=== PATIENT | female | born 1985 | race Caucasian/White ===

== ENCOUNTER → 2017-06-03 13:20 | Outpatient (CLI) | payer MEDICAID, SELFPAY ==
[2017-06-03 14:28] LABS: Basophils % 0.3 % (0.1-2.0); Eosinophils # 0.1 K/mm3 (0.0-0.4); Eosinophils % 1.4 % (0.1-12.0); Hematocrit 40.3 % (37.0-47.0); Hemoglobin 13.5 g/dL (12.2-16.2); Mean Corpuscular HGB Conc 33.6 g/dL (31.8-35.4); Mean Corpuscular Hemoglobin 32.8 pg (27.0-31.2); Mean Corpuscular Volume 97.6 fl (81-99); Mean Platelet Volume 7.6 fl (7.4-10.4); Monocytes # 0.3 K/mm3 (0.1-1.0); Monocytes % 4.5 % (1.7-9.3); Neutrophils # 5.1 K/mm3 (1.8-7.8); Neutrophils % 67.7 % (37.0-80.0); Platelet Count 248 K/mm3 (142-424); Red Blood Count 4.12 M/mm3 (4.20-5.40); Red Cell Distribution Width 12.8 % (11.5-17.5); White Blood Count 7.5 K/mm3 (4.8-10.8)
[2017-06-03 15:57] LABS: Alanine Aminotransferase 59 U/L (12-78); Albumin Level 4.4 gm/dL (3.4-5.0); Albumin/Globulin Ratio 1.3 (1.1-1.8); Alkaline Phosphatase 121 U/L (46-116); Anion Gap 13.7 mEq/L (5-15); Aspartate Amino Transferase 48 U/L (15-37); Bilirubin,Total 0.7 mg/dL (0.2-1.0); Blood Urea Nitrogen 13 mg/dL (7-18); Calcium 8.8 mg/dL (8.5-10.1); Carbon Dioxide 28 mmol/L (21.0-32.0); Chloride 103 mmol/L (98-107); Creatinine,Serum 0.57 mg/dL (0.55-1.02); Estimated Glomerular Filt Rate 125 ml/min (>60); Ferritin 120 ng/mL (8-388); GFR (African American) 152 ML/MIN (>60); Globulin 3.3 gm/dl (1.3-3.2); Glucose 99 mg/dL (74-106); Potassium 3.7 mmoL/L (3.5-5.1); Sodium 141 mmol/L (136-145); Total Protein,Serum 7.7 gm/dL (6.4-8.2)
[2017-06-03 18:56] LABS: Amphetamine/Metha Screen,Urine Negative ng/mL (<1000); Barbiturates Screen,Urine Negative ng/mL (<200); Benzodiazepines Screen,Urine Negative ng/mL (200); Cannabinoid Screen,Urine Negative ng/mL (<50); Cocaine Screen,Urine Negative ng/g (<300); Methadone Screen,Urine Negative ng/mL (<300); Opiate Screen,Urine Negative ng/mL (<300); Phencyclidine Screen,Urine Negative ng/mL (<25)
[2017-06-05 12:29] LABS: Actin (Smooth Muscle) Antibody 9 Units (0-19)
[2017-06-06 07:20] LABS: Hep A Ab, Total Negative (Negative); Hep B Core Ab, Total Negative (Negative); Hepatitis B Surface Antigen Negative (Negative)
[2017-06-07 22:09] LABS: Hepatitis C Genotype 1a (.)
[2017-06-09 18:15] LABS: Hep B Surface Ab, Qual Non Reactive (.)
[2017-06-09 18:17] LABS: Antinuclear Antibodies, IFA Positive (.)
== END ==
PROVIDERS: PCP Nurse Practitioner Family; Visit Provider Physician Assistant
DX: B19.20 Unspecified viral hepatitis C without hepatic coma (principal); Z87.898 Personal history of other specified conditions; Z78.9 Other specified health status
CPT/HCPCS: 80053; 80305; 82728; 85025; 86038; 86255; 86704; 86706; 86708; 87340

== ENCOUNTER → 2017-07-03 15:56 | Outpatient (CLI) | payer MEDICAID, SELFPAY ==
--- NOTE | 2017-07-03 | XR_ITS ---
XR foot RT min 3V, XR foot LT min 3V, XR ankle RT min 3V, XR ankle LT min 3V Ordering Physician: Isadora Looney DPM Patient Age: 31 years: Female HISTORY: Foot and ankle pain bilatera.. L physical deformity of feet TECHNIQUE: Right ankle: 3 views weightbearing Left ankle: 3 views weightbearing Right foot: 3 views weightbearing Left foot: 3 views weightbearing COMPARISON :February 2015 right and left foot studies available RIGHT ANKLE: 3 views weightbearing RIGHT FOOT: 3 views weightbearing The above images are reviewed together Right foot: Notable flexion, hammertoe deformity at all the toes again noted. With perhaps borderline/trace hallux valgus. On the second and third metatarsals seem to be closer to one another than the other metatarsals but this appears stable feature and normal variant. The joint spaces at the mid foot and tarsal appear intact... Modest but Adequate plantar arch Right ankle joint appears intact. Dome of talus intact. Normal relationships ankle mortise. The medial, lateral, and posterior malleolus satisfactory. IMPRESSION.:======== Right ankle intact. On flexion, hammertoe deformity at toes LEFT ANKLE: 3 views weightbearing left ankle appears intact. Normal relationships. Dome of talus ankle. Mortise appear intact. LEFT FOOT: 3 views weightbearing . Normal alignment with no fracture nor dislocation.. Modest but Adequate plantar arch No significant change since 2014. The metatarsals intact. Mild flexion deformity of most evident at the toes 3, 4 and 5 and to lesser degree second and first toe. . A small plantar calcaneal spur 2 mm. IMPRESSION: ========= Left ankle and foot intact. Mild flexion deformity at toes :
== END ==
PROVIDERS: PCP Nurse Practitioner Family; Visit Provider Podiatrist
DX: M79.671 Pain in right foot (principal); M79.672 Pain in left foot
CPT/HCPCS: 73610; 73630

== ENCOUNTER → 2017-08-14 13:19 | Outpatient (POV) | payer MEDICAID, SELFPAY | PROVIDERS: PCP Nurse Practitioner Family; Visit Provider Specialist | DX: Q66.7 Congenital pes cavus (principal) | CPT/HCPCS: 95886; 95908 ==

== ENCOUNTER 2017-09-18 13:30 | Outpatient (RCR) | payer MEDICAID, SELFPAY | END 2017-09-18 17:00 | disposition home or self-care (01) | LOC: PT 13:30 | PROVIDERS: PCP Nurse Practitioner Family; Visit Provider Podiatrist | DX: M62.81 Muscle weakness (generalized) (principal) | CPT/HCPCS: 97110; 97163 ==

== ENCOUNTER → 2018-03-06 11:36 | Outpatient (CLI) | payer MEDICAID, SELFPAY ==
[2018-03-06 13:35] LABS: Basophils % 0.3 % (0.1-2.0); Eosinophils # 0.3 K/mm3 (0.0-0.4); Eosinophils % 4.1 % (0.1-12.0); Hematocrit 37.2 % (37.0-47.0); Hemoglobin 12.4 g/dL (12.2-16.2); Lymphocytes # 2.2 K/mm3 (0.7-4.5); Lymphocytes % 34.5 K/mm3 (10-50); Mean Corpuscular HGB Conc 33.4 g/dL (31.8-35.4); Mean Corpuscular Hemoglobin 33.4 pg (27.0-31.2); Mean Corpuscular Volume 99.9 fl (81-99); Mean Platelet Volume 8.2 fl (7.4-10.4); Monocytes # 0.3 K/mm3 (0.1-1.0); Monocytes % 4.8 % (1.7-9.3); Neutrophils # 3.5 K/mm3 (1.8-7.8); Neutrophils % 56.4 % (37.0-80.0); Platelet Count 245 K/mm3 (142-424); Red Blood Count 3.72 M/mm3 (4.20-5.40); Red Cell Distribution Width 13.2 % (11.5-17.5); White Blood Count 6.3 K/mm3 (4.8-10.8)
[2018-03-06 14:16] LABS: Alanine Aminotransferase 88 U/L (12-78); Albumin Level 3.7 gm/dL (3.4-5.0); Alkaline Phosphatase 110 U/L (46-116); Anion Gap 14.2 mEq/L (5-15); Aspartate Amino Transferase 54 U/L (15-37); Bilirubin,Direct 0.1 mg/dL (0.0-0.2); Bilirubin,Indirect 0.2 mg/dL (0.0-0.9); Bilirubin,Total 0.3 mg/dL (0.2-1.0); Blood Urea Nitrogen 15 mg/dL (7-18); Calcium 8.8 mg/dL (8.5-10.1); Carbon Dioxide 27 mmol/L (21.0-32.0); Chloride 103 mmol/L (98-107); Creatinine,Serum 0.69 mg/dL (0.55-1.02); Estimated Glomerular Filt Rate 100 ml/min (>60); GFR (African American) 121 ML/MIN (>60); Glucose 84 mg/dL (74-106); Potassium 4.2 mmoL/L (3.5-5.1); Sodium 140 mmol/L (136-145); Total Protein,Serum 6.8 gm/dL (6.4-8.2)
[2018-03-07 09:19] LABS: Hep A Ab, IgM Negative (Negative); Hepatitis B Core Antibody IgM Negative (Negative); Hepatitis B Surface Antigen Negative (Negative)
[2018-03-07 15:57] LABS: HIV Screen 4th Generation wRfx Non Reactive (Non Reactive); Hepatitis C Antibody >11.0 s/co ratio (0.0-0.9)
== END ==
PROVIDERS: PCP Nurse Practitioner Family; Visit Provider Anesthesiology
DX: F11.20 Opioid dependence, uncomplicated (principal); R94.5 Abnormal results of liver function studies
CPT/HCPCS: 36415; 80048; 80074; 80076; 85025; 86703; G0432

== ENCOUNTER → 2021-02-04 09:50 | Outpatient (CLI) | payer MEDICAID, SELFPAY ==
--- NOTE | 2021-02-04 09:57 | CT_ITS ---
PROCEDURE: CT ABDOMEN W CON CLINICAL HISTORY: LT UPPER ABD SWELLING/MASS COMPARISON: No exams were available for comparison TECHNIQUE: 75 mL Isovue 370 Axial images obtained with sagittal and coronal reformats. All CT scans at the facility use one or more dose reduction, viz: automated exposure control, ma/kV adjustment per patient size (including targeted exams where dose is matched to indication, i.e. head), or iterative reconstruction technique. FINDINGS: Lung bases are clear. No focal liver lesion identified. Spleen, adrenal glands, pancreas, and kidneys have an unremarkable appearance. There is mild distention of the gallbladder. No radiopaque gallstones apparent. No intestinal obstruction or free air is evident. There is a ventral abdominal wall hernia containing fat 2 cm cephalad to the umbilicus. The hernia orifice measures 1.8 cm. The hernia sac measures 5.8 cm in width and is canted toward the left. There is a tiny umbilical hernia containing fat. There is some mild haziness of the peritoneal fat deep to the supraumbilical hernia. This hernia does not contain bowel. No acute bony findings. IMPRESSION: Small to medium-sized supraumbilical hernia containing fat. There is mild haziness of the peritoneal fat deep to the hernia orifice. Tiny fat containing umbilical hernia also noted. Dictated by: Andrey Lam MD 02/05/2021 07:38 Andrey Lam MD in [place] 02/05/2021 07:38
== END ==
PROVIDERS: PCP Nurse Practitioner Family; Visit Provider Nurse Practitioner Family
DX: R19.02 Left upper quadrant abdominal swelling, mass and lump (principal)
CPT/HCPCS: 74160; Q9967

== ENCOUNTER → 2021-03-03 10:48 | Outpatient (CLI) | payer MEDICAID, SELFPAY ==
[2021-03-03 11:41] LABS: Basophils % 0.5 % (0.1-2.0); Eosinophils # 0.2 K/mm3 (0.0-0.4); Eosinophils % 3.9 % (0.1-12.0); Hematocrit 42.2 % (37.0-47.0); Hemoglobin 13.9 g/dL (12.2-16.2); Lymphocytes # 1.9 K/mm3 (0.7-4.5); Lymphocytes % 37.4 % (10-50); Mean Corpuscular Hemoglobin 33.7 pg (27.0-31.2); Mean Platelet Volume 8.2 fl (7.4-10.4); Monocytes # 0.3 K/mm3 (0.1-1.0); Monocytes % 5.6 % (1.7-9.3); Neutrophils # 2.7 K/mm3 (1.8-7.8); Neutrophils % 52.5 % (37.0-80.0); Platelet Count 275 K/mm3 (142-424); Red Blood Count 4.14 M/mm3 (4.20-5.40); Red Cell Distribution Width 12.6 % (11.5-17.5); White Blood Count 5.1 K/mm3 (4.8-10.8)
[2021-03-03 11:58] LABS: Urine Pregnancy, HCG Qual. Negative (Negative)
[2021-03-03 12:45] LABS: Chloride 104 mmol/L (98-107); Potassium 4.1 mmoL/L (3.5-5.1); Sodium 142 mmol/L (136-145)
[2021-03-03 12:48] LABS: Anion Gap 15.1 mEq/L (5-15); Blood Urea Nitrogen 13 mg/dl (7-17); Calcium 9.7 mg/dl (8.4-10.2); Carbon Dioxide 27 mmol/L (22.0-30.0); Estimated Glomerular Filt Rate 184 ml/min (>60); GFR (African American) 222 ML/MIN (>60); Glucose 73 mg/dl (74-100)
== END ==
PROVIDERS: Visit Provider Surgery
DX: Z01.812 Encounter for preprocedural laboratory examination (principal); Z11.52 Encounter for screening for COVID-19; K43.9 Ventral hernia without obstruction or gangrene
CPT/HCPCS: 36415; 80048; 81025; 85025; C9803; U0003; U0005

== ENCOUNTER 2021-03-05 06:11 | Day surgery (SDC) | payer MEDICAID, SELFPAY ==
[2021-03-04 13:15] VITALS: BMI 27.4
[2021-03-05] VITALS (12 sets, daily range): BP systolic 106–142; BP diastolic 58–88; PULSE 68–80; RESP 16–23; TEMP 36.6–43; O2SAT 94–98
--- NOTE | 2021-03-05 07:19 | HMH.ANESCL ---
[facility] Anesthesia Checklist - Patient Identification Patient Identification: Arm Band - Structural Data Admitted From: Home Planned Operative Procedure/s: Lap. ventral hernia repair Consent for Planned Operative Procedure(s) Verified: Yes - NPO Status Verified Time NPO: 00:00 - Additional verifications Anesthesia Reactions: No Hx Blood Transfusions: No Blood Transfusion Reaction: No - Airway Assessment C-Spine Mobility Assessed: Yes TMJ Mobility Assessed: Yes Dentition: Good Dentition - Neurological Assessment Level of Consciousness: Awake Hx Seizures: No Numbness or tingling in extremities: No - Anesthesia Plan Anesthesia Risk discussed: Yes Anesthesia Plan: Verified ASA Class: II Anesthesia Type: General [facility] History I have reviewed the patient's past medical history: Yes Medical History: Reports:: Anxiety Denies:: Asthma, Cancer, Chronic Obstructive Pulmonary Disease (COPD), Diabetes Mellitus Type 1, Diabetes Mellitus Type 2, MRSA, Seizures *Have you ever received a pneumonia vaccine?: No *Have you received a flu vaccine this season?: No Other Medical History: Denies: Blood Transfusion Reaction Anesthesia experience/problems:: None Laterality Cases: Right: Total Knee Replacement, Bilateral: Tonsillectomy Other Surgeries: Yes: Amputation: No Fractures: Yes - *Social History Last grade of school completed: 9th or 10th Smoking Status: Former smoker Tobacco Type: cigarettes, smokeless tobacco # Packs/Day (cigarettes): 1 Alcohol Intake: never Alcohol Intake Frequency:: other Substance Use Type: opiates Last Used Substance: days (ago) *Occupational Status:: unemployed Housing: house Household Members: significant other, children *Travel in the last 8 weeks: None - Psychiatric History Pschychiatric History:: Reports:: Anxiety Family Hx:: No significant family history
--- NOTE | 2021-03-05 09:10 | P.OP_ITS ---
Date of procedure: 03/05/21 Pre-op Diagnosis:: Ventral hernia (supraumbilical) Post-op Diagnosis:: Same Procedure performed:: Laparoscopic-assisted open repair of supraumbilical hernia (8 cm Ventralex mesh) Surgeon:: Tyler Croft MD Marketing Services Rep(s):: Tiago [employer] CHIEF CREATIVE OFFICER:: Gregorio Jesus Anesthesia: GETA Estimated blood loss (mL): 10 Operative findings:: 2 cm defect approximately 2 cm above the umbilicus Tiny umbilical defect 8 cm Ventralex mesh to repair hernia and also cover tiny umbilical defect Operative note:: After informed consent was obtained the patient was taken to the operating room and placed in the supine position. General anesthesia was induced and her abdomen was prepped and draped in a sterile fashion. After infiltration local anesthetic a small stab incision was made in the left upper quadrant. The Veress needle was placed in position. The abdomen was insufflated. A 5 mm optical trocar was placed on the left mid flank. Under direct visualization an additional 5 mm trocar was placed at the Veress needle insertion site after extending the incision. An additional 5 mm trocar was placed in the left lower quadrant. A tiny umbilical defect with incarcerated preperitoneal fat was confirmed. The preperitoneal fat was removed with blunt dissection. The larger supraumbilical defect had incarcerated preperitoneal fat to encompass the distal portion of the falciform ligament. After infiltration local anesthetic an incision was made above the umbilicus. Blunt dissection and electrocautery were utilized to transect through the deeper subcutaneous tissue. The incarcerated preperitoneal fat/distal falciform ligament was carefully elevated and transected with electrocautery. An 8 cm Ventralex mesh was then placed in position and secured with 0 Ethibond. Primary closure with 0 Ethibond was then completed overlying the mesh repair. Optifix tacks were then utilized to secure the margin of the mesh internally. Pneumoperitoneum was released as all trocars were removed. Wounds were irrigated and skin was closed with 4-0 Monocryl. Dressings were applied and the patient was transferred to recovery in stable condition after extubation. Condition: stable Disposition: PACU Specimens:: None Complications:: No immediate
--- NOTE | 2021-03-05 09:29 | HMH.ANESI ---
[facility] Anesthesia Record Part I Intake, IV Amount: 800 Estimated blood loss (mL): 10 Urine output (mL): 50 Blood Pressure: 142/58 SaO2: 94 Pulse Rate: 68 Respiratory Rate: 23 Temperature: 99.6 F Patient is:: Drowsy, Oral/Nasal airway Stable to PACU at:: 09:29
--- NOTE | 2021-03-05 10:23 | PC.NURSE ---
957-detailed bedside report given to CAITIE Bee 955-pt transported to post op via stretcher w/batool rails up, left in care of CAITIE Bee, vss, pt stable
--- NOTE | 2021-03-05 12:11 | HMH.ANESII ---
[facility] Anesthesia Record Part II Discharge Time: 10:09 Destination: [facility] PACU nurse assessment reviewed?: Yes Patient Condition:: Good Anesthesia Complications:: None Swallowing reflex intact?: Yes Cyanosis?: No Blood Pressure: 112/62 Pulse Rate: 78 Temperature: 98 F Mental Status: Alert & Oriented Pain level:: 5 Nausea and/or vomitting:: None Intake, IV Amount: 1,000
== END 2021-03-05 10:40 | disposition home or self-care (01) ==
LOC: OR 06:14
PROVIDERS: PCP Nurse Practitioner Family; Visit Provider Surgery
PROC: 0WQF4ZZ Repair Abdominal Wall, Percutaneous Endoscopic Approach (ICD-10-PCS; CPT 49561; principal; 2021-03-05 07:30)
DX: K43.6 Other and unspecified ventral hernia with obstruction, without gangrene (principal); F41.9 Anxiety disorder, unspecified; Z87.891 Personal history of nicotine dependence; Z88.0 Allergy status to penicillin; Z79.899 Other long term (current) drug therapy
CPT/HCPCS: 49561; 49568; 87086; 96374; C1781; J2405

== ENCOUNTER 2024-04-16 14:45 | Outpatient (CLI) | payer MEDICAID, SELFPAY ==
[2024-04-16 15:38] LABS: Basophils # 0.2 K/mm3 (0-0.2); Basophils % 3.3 % (0.1-2.0); Eosinophils # 0.2 K/mm3 (0.0-0.4); Hematocrit 35.5 % (37.0-47.0); Hemoglobin 12.1 g/dL (12.2-16.2); Lymphocytes # 1.4 K/mm3 (0.7-4.5); Lymphocytes % 31.5 % (10-50); Monocytes # 0.4 K/mm3 (0.1-1.0); Monocytes % 8.6 % (1.7-9.3); Neutrophils # 2.4 K/mm3 (1.8-7.8); Neutrophils % 52.6 % (37.0-80.0); Platelet Count 129 K/mm3 (142-424); Red Blood Count 3.55 M/mm3 (4.20-5.40); Red Cell Distribution Width 14.7 % (11.5-17.5); White Blood Count 4.5 K/mm3 (4.8-10.8)
[2024-04-16 16:16] LABS: Chloride 108 mmol/L (98-107); Sodium 137 mmol/L (136-145)
[2024-04-16 16:19] LABS: Alanine Aminotransferase 74 U/L (12-78); Albumin/Globulin Ratio 1.1 (1.1-1.8); Aspartate Amino Transferase 165 U/L (14-36); Blood Urea Nitrogen 10 mg/dl (7-17); Carbon Dioxide 24 mmol/L (22.0-30.0); Estimated Glomerular Filt Rate 140 ml/min (>60); GFR (African American) 169 ML/MIN (>60); Globulin 3.8 g/dL (1.3-3.2); Total Protein,Serum 7.8 g/dl (6.3-8.2)
[2024-04-16 16:20] LABS: Alkaline Phosphatase 131 U/L (38-126); Bilirubin,Total 1.9 mg/dl (0.2-1.3); Calcium 9.3 mg/dl (8.4-10.2); Chol/HDL Ratio 5.3 (1-3.5); Cholesterol 175 mg/dl (140-200); Glucose 88 mg/dl (74-100); HDL Cholesterol 33 mg/dl (40-60); Triglycerides 95 mg/dl (30-150); VLDL Cholesterol 19 mg/dL (0-40)
[2024-04-16 16:31] LABS: Direct LDL Cholesterol 111.35 mg/dL (100-129)
[2024-04-16 16:35] LABS: HIV (1&2) Antibody Rapid NONREACTIVE (NONREACTIVE)
[2024-04-16 16:51] LABS: Thyroid Stimulating Hormone 1.28 uIU/mL (0.465-4.68)
[2024-04-16 17:08] LABS: 25-OH Vitamin D, Total 51.6 ng/mL (30-100)
[2024-04-17 07:16] LABS: Hep A Ab, Total Negative (Negative); Hep B Core Ab, Total Negative (Negative); Hep B Surface Ab, Qual Non Reactive (.); Hepatitis B Surface Antigen Negative (Negative)
[2024-04-18 20:13] LABS: HCV Ab Reactive (Non Reactive)
[2024-04-19 03:38] LABS: ALT (SGPT) P5P 72 IU/L (0-40); Alpha 2-Macroglobulins, Qn 258 mg/dL (110-276); Apolipoprotein A-1 78 mg/dL (116-209); Bilirubin, Total 1.6 mg/dL (0.0-1.2); Fibrosis Score 0.79 (0.00-0.21); GGT 107 IU/L (0-60); Haptoglobin 57 mg/dL (33-278); Necroinflammat Activity Grade A2-A3 (.); Necroinflammat Activity Score 0.61 (0.00-0.17)
== END 2024-04-16 23:59 | disposition home or self-care (01) ==
LOC: LAB 14:46
PROVIDERS: PCP Nurse Practitioner Family; Visit Provider Nurse Practitioner Family
DX: B19.20 Unspecified viral hepatitis C without hepatic coma (principal); R74.8 Abnormal levels of other serum enzymes; Z11.59 Encounter for screening for other viral diseases
CPT/HCPCS: 36415; 80050; 80053; 80061; 81517; 82306; 84443; 85025; 86704; 86706; 86708; 86803; 87340; 87380; 87389; 87522

== ENCOUNTER 2024-05-02 09:34 | Outpatient (CLI) | payer MEDICAID, SELFPAY ==
--- NOTE | 2024-05-02 09:35 | US_ITS ---
FINAL REPORT CLINICAL HISTORY: Hep C positive, elevated liver enzymes COMPARISON: None FINDINGS: HEPATIC ULTRASOUND Multiple transverse and longitudinal scans were performed of the right upper quadrant of the abdomen. FINDINGS: Limited images of the liver demonstrate no obvious mass or evidence of cirrhosis. IMPRESSION: No obvious sonographic features of cirrhosis. HEPATIC ULTRASOUND ELASTOGRAPHY EQUIPMENT: Amaro EPIQ Elite 5, C5-1 probe FINDINGS: The median liver stiffness value is 2.43 m/s (17.75 KPa) consistent with advanced fibrosis. The IQR/med is 28%. IMPRESSION: Measurements suggestive of advanced fibrosis. Suggestive of CSPH. Note: In the setting of elevated 1iver function tests, post prandial state, and CHF the degree of liver fibrosis may be overestimated Liver Stiffness Value Recommendation (per SRU): <= 5 kPa (1.3 m/sec) High probability of being normal < 9 kPa (1.7 m/sec) In the absence of other known clinical signs, rules out cACLD. If there are known clinical signs, may need further test for confirmation 9-13 kPa (1.7-2.1 m/sec) Suggestive of cACLD but need further test for confirmation > 13 kPa (2.1 m/sec) Rules in cACLD > 17 kPa (2.4 m/sec) Suggestive of CSPH Note.-ARFI = acoustic radiation force impulse, cACLD = compensated advanced chronic liver disease, CSPH = clinically significant portal hypertension, NAFLD = non-alcoholic fatty liver disease. Reviewed, Interpreted and Dictated by Feng Phelps MD Transcribed by Yulia Matos Authenticated and [facility]
== END 2024-05-02 23:59 | disposition home or self-care (01) ==
LOC: RAD 09:35
PROVIDERS: PCP Nurse Practitioner Family; Visit Provider Nurse Practitioner Family
DX: R74.8 Abnormal levels of other serum enzymes (principal); B18.2 Chronic viral hepatitis C
CPT/HCPCS: 76981

== ENCOUNTER 2024-09-17 15:26 | Outpatient (CLI) | payer MEDICAID, SELFPAY ==
[2024-09-18 12:16] LABS: AFP, Tumor Marker 5.7 ng/mL (0.0-6.4)
== END 2024-09-17 23:59 | disposition home or self-care (01) ==
LOC: LAB 15:27
PROVIDERS: PCP Nurse Practitioner Family; Visit Provider Internal Medicine Gastroenterology
DX: K74.69 Other cirrhosis of liver (principal); B19.20 Unspecified viral hepatitis C without hepatic coma
CPT/HCPCS: 36415; 80053; 82105; 87522

== ENCOUNTER 2024-10-14 14:55 | Outpatient (CLI) | payer MEDICAID, SELFPAY ==
[2024-10-14 16:51] LABS: Alanine Aminotransferase 25 U/L (12-78); Albumin Level 3.8 g/dl (3.5-5.0); Albumin/Globulin Ratio 1.3 (1.1-1.8); Alkaline Phosphatase 95 U/L (38-126); Anion Gap 9.9 mEq/L (5-15); Aspartate Amino Transferase 43 U/L (14-36); Bilirubin,Total 1.3 mg/dl (0.2-1.3); Blood Urea Nitrogen 10 mg/dl (7-17); Calcium 9.1 mg/dl (8.4-10.2); Carbon Dioxide 25 mmol/L (22.0-30.0); Chloride 108 mmol/L (98-107); Estimated Glomerular Filt Rate 180 ml/min (>60); GFR (African American) 217 ML/MIN (>60); Globulin 2.9 g/dL (1.3-3.2); Glucose 150 mg/dl (74-100); Potassium 3.9 mmoL/L (3.5-5.1); Sodium 139 mmol/L (136-145); Total Protein,Serum 6.7 g/dl (6.3-8.2)
== END 2024-10-14 23:59 | disposition home or self-care (01) ==
LOC: LAB 14:56
PROVIDERS: PCP Nurse Practitioner; Visit Provider Internal Medicine Gastroenterology
DX: K74.69 Other cirrhosis of liver (principal); B19.20 Unspecified viral hepatitis C without hepatic coma
CPT/HCPCS: 36415; 80053

== ENCOUNTER 2025-01-05 18:12 | Emergency (ER) | payer MEDICAID, SELFPAY ==
[2025-01-05] VITALS (9 sets, daily range): BP systolic 109–146; BP diastolic 58–92; PULSE 51–74; RESP 16–18; TEMP 36.7–37; O2SAT 95–98; BMI 29.0
--- NOTE | 2025-01-05 18:23 | ECG_ITS ---
APPROVED REPORT Exam: Resting ECG HR:63 bpm ECG Measurements Heart Rate 63 AXES PA 143 P 31 QRSd 107 QRS 37 QT 400 T 24 QTc 408 Conclusion SINUS RHYTHM POSSIBLE RIGHT VENTRICULAR CONDUCTION DELAY [RSR (QR) IN V1/V2] BORDERLINE ECG UNCONFIRMED REPORT Electronically signed by : Sachin Myers, 01/05/2025 23:10:26
--- NOTE | 2025-01-05 18:58 | ED_ITS ---
<Statement entered by Albert Myers MD - 01/05/25 22:57> I was consulted by the MIGUELINA, and we discussed the complexity of the problems being addressed. I approved the treatment and management plan for this patient's care in the emergency department, thus performing a substantive portion of the medical decision making. Albert Myers MD, CHANDLER, FACEP Discharge Plan Disposition Patient Disposition: Home, Self-Care Prescriptions Prescriptions: No Action buprenorphine-naloxone [Suboxone] 2-0.5 mg film 0.5 tab PO DAILY Linzess 145 mcg capsule 145 mcg PO DAILY Qty: 90 3RF Referrals Follow up/Referrals: [facility] [Other] - See instructions Provider,Referral, [Primary Care Provider, Medical] - See instructions Activity Restrictions/Add. Instructions Additional Instructions/Restrictions: Follow-up with your PCP for full cardiac workup. If any further problems or concerns please return to the ED. Clinical Impressions Clinical Impression: Chest pain Instructions Patient Instructions: DI for Chest Pain Print Language Print Language: Finnish Discharge ED Provider: Albert Myers HPI General Chief Complaint: Chest Pain Stated Complaint: Chest Pain Time Seen by Provider: 01/05/25 18:19 Mode of Arrival: EMS Source of Information: Patient Description of Symptoms (Recalled from ER Triage Doc. by RN): PATIENT PRESENTS TO ED FOR MIDSTERNAL CHEST PAIN, STATES IT FEELS LIKE BURNING. RECEIVED 324 ASA AND 2 SL NITRO EN ROUTE, RATES PAIN 3/10. History of Present Illness HPI narrative: 39-year-old female presents to the ED via EMS for midsternal chest pain that started about 1230 as heartburn. Patient states that it started as heartburn and then felt like it was chest pain after that. She says she started having nausea but no vomiting. No fevers or chills. EMS did give her nitro and aspirin and route. She said that really took the pain away. She says that she has never had any heart problems in the past. She does take Suboxone and Linzess. She has never had any problems with hypertension. 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 Related Data Home Medications ?Medication ?Instructions ?Recorded ?Confirmed buprenorphine 2 mg-naloxone 0.5 mg 0.5 tab PO DAILY wi thdrawal 07/03/17 09/17/24 sublingual film (Suboxone) Previous Rx's ?Medication ?Instructions ?Recorded linaclotide 145 mcg capsule 145 mcg PO DAILY #90 caps 10/14/24 (Linzess) Allergies Allergy/AdvReac Type Severity Reaction Status Date / Time Penicillins Allergy Unknown Verified 09/17/24 15:00 allergy reaction [facility] Disclaimer: The information contained in this section may have been updated after the patient was seen, as this information can be updated by other users. Medical History Elevated liver enzymes Hep C w/o coma, chronic Surgical History H/O hernia repair H/O adenoidectomy Hx of tonsillectomy H/O knee surgery Social History Smoking Status: Current every day smoker tobacco type: cigarettes packs per day: 1 and smokeless tobacco second hand exposure: No alcohol intake: never substance use type: former substance user and opiates current occupational status: unemployed Travel in the last 8 weeks?: None household members: significant other and children housing: house current occupational exposures/hazards: No Have you lived/traveled outside [place] in past 30 days?: No Contact w/someone who lives/traveled outside US past 30 days?: No Exposure to someone with infectious disease in past 14 days?: No Do you have a fever (greater than 100.4 F or 38 C)?: No Have you tested positive for COVID-19?: No Exposed to someone with COVID-19 in past 14 days?: No Do you have a sore throat?: No Do you have a cough?: No Do you have any weakness?: No Do you have any diarrhea?: No Are you experiencing any unusual bleeding?: No Do you have any muscle aches/pain?: No Do you have any abdominal pain?: No Are you experiencing loss of taste or smell?: No Other Medical History Have you received the Flu Vaccine for this season: No Have you received the Pneumonia Vaccine: No ROS Obtained: Yes Systems reviewed as appropriate & no additional complaints except as documented Constitutional Constitutional: Reports as per HPI Physical Exam General General appearance: alert Head Head exam: normocephalic Eye Eye exam: Present PERRL ENT ENT exam: Present mucous membranes moist Neck Neck exam: Present trachea midline Chest Chest inspection: Present symmetric chest wall rise Respiratory Respiratory exam: Present normal lung sounds bilaterally Cardiovascular Cardiovascular exam: Present regular rate, normal rhythm, normal heart sounds, +S1 and +S2 Abdominal Exam Abdominal exam: Present soft and normal bowel sounds Extremities Exam Extremities exam: Present normal inspection, full ROM and normal capillary refill Back Exam Back exam: Present full ROM Neurological Exam Neurological exam: Present alert and oriented X3 Psychiatric Psychiatric exam: Present normal mood Skin Skin exam: Present warm and dry HEART Score HEART Score HEART Score assessment performed?: Yes History (anamnesis): Slightly suspicious ECG: Normal Age: <45 years Risk factors: No known risk factors Troponin: </= normal limit HEART Score: 0 Critical Care Critical Care Time Critical Care Time: No Medical Decision Making Odell Inquiry Pt receiving controlled substance: No Odell was queried for this patient: No Vital Signs Vital Signs: 01/05/25 18:15 01/05/25 18:15 01/05/25 18:15 Temperature 98.6 F 98.6 F Temperature Source Oral Pulse Rate 74 74 Pulse Rate [Right] 74 Respiratory Rate 18 18 Blood Pressure 146/81 H Blood Pressure [Left Arm] 146/81 H Blood Pressure Mean [Left Arm] 102 Blood Pressure Position 02 Sat by Pulse Oximetry 96 96 Oxygen Delivery Method Room Air 01/05/25 19:30 01/05/25 19:46 01/05/25 20:15 Temperature Temperature Source Pulse Rate 60 65 61 Pulse Rate [Right] Respiratory Rate 16 18 Blood Pressure 120/92 H 109/58 L Blood Pressure [Left Arm] Blood Pressure Mean [Left Arm] Blood Pressure Position 02 Sat by Pulse Oximetry 96 98 97 Oxygen Delivery Method 01/05/25 20:30 01/05/25 21:01 01/05/25 21:30 Temperature Temperature Source Pulse Rate 61 65 51 L Pulse Rate [Right] Respiratory Rate Blood Pressure 124/65 118/70 123/68 Blood Pressure [Left Arm] Blood Pressure Mean [Left Arm] Blood Pressure Position 02 Sat by Pulse Oximetry 96 97 95 Oxygen Delivery Method 01/05/25 21:45 01/05/25 21:59 Temperature 98.0 F 98.0 F Temperature Source Oral Pulse Rate 59 L 59 L Pulse Rate [Right] Respiratory Rate 16 18 Blood Pressure 123/68 123/68 Blood Pressure [Left Arm] Blood Pressure Mean [Left Arm] Blood Pressure Position Supine 02 Sat by Pulse Oximetry 97 Oxygen Delivery Method Room Air Lab Data Labs: Lab Results 01/05/25 18:45: WBC 10.0, RBC 3.94 L, Hgb 12.9, Hct 36.7 L, MCV 93.1, MCH 32.7 H , MCHC 35.1, RDW 13.8, Plt Count 128 L, MPV 10.5 H, Neut % (Auto) 78.5, Lymph % (Auto) 9.3 L, Ward % (Auto) 10.3 H, Eos % (Auto) 1.2, Baso % (Auto) 0.5, Neut # (Auto) 7.9 H, Lymph # (Auto) 0.9, Ward # (Auto) 1.0, Eos # (Auto) 0.1, Baso # (Auto) 0.1, Sodium 139, Potassium 3.8, Chloride 107, Carbon Dioxide 24, Anion Gap 11.8, BUN 9, Creatinine 0.40 L, Estimated Creat Clear 248, Estimated GFR 180, Est GFR ( Amer) 217, Glucose 103 H, Calcium 8.9, Total Bilirubin 1.5 H, AST 106 H, ALT 45, Alkaline Phosphatase 168 H, Troponin I < 0.01, Total Protein 7.3, Albumin 4.1, Globulin 3.2, Albumin/Globulin Ratio 1.3 01/05/25 20:44: Troponin I < 0.01 01/05/25 18:45 01/05/25 18:45 Response Orders (Tests/Meds): ORDERS Category Date Time Status Chest XR -- portable [XR chest portable] Stat Exams 01/05/25 19:34 Completed CBC w/Auto Diff [Complete Blood Count Auto Diff] Stat Lab 01/05/25 18:45 Completed CMP [Comprehensive Metabolic Panel] Stat Lab 01/05/25 18:45 Completed Trop I [Troponin I] Stat Lab 01/05/25 18:45 Completed Troponin I Q3H Lab 01/05/25 20:44 Completed MDM Narrative Medical Decision Narrative: patient is a 39-year-old female presenting to the emergency department for evaluation of chest pain that started at noon 30 today. Patient is hemodynamically stable and nontoxic-appearing upon arrival, afebrile. Differential diagnosis includes ACS, indigestion, GERD, among others. Workup will be conducted with hematologic labs, specific imaging. Initial inventions include crystalloid bolus, analgesics. Initial workup reviewed by me hematologic labs are remarkable for normal troponin and otherwise unremarkable lab work.. Chest x-ray was normal. Patient and I had discussion about following up with her doctor and having them to formal cardiology follow-up and due to echo and stress test. Patient will follow-up with her PCP. Patient safe for discharge home.
--- NOTE | 2025-01-05 19:34 | XR_ITS ---
PROCEDURE INFORMATION: Exam: XR Chest Exam date and time: 01/05/2025 8:09 PM Age: 39 years old Clinical indication: Pain; Other: Burning; Additional info: Chest burning TECHNIQUE: Imaging protocol: Radiologic exam of the chest. Views: 1 view. COMPARISON: CT ABDOMEN W CON 02/04/2021 11:03 AM FINDINGS: Lungs: Low lung volumes without definite focal airspace consolidation. Pleural spaces: No pneumothorax. Heart/Mediastinum: Unremarkable cardiomediastinal silhouette. Bones/joints: No acute osseous findings. IMPRESSION: Low lung volumes without definite focal airspace consolidation.
[2025-01-05 19:41] LABS: Hematocrit 36.7 % (37.0-47.0); Hemoglobin 12.9 g/dL (12.2-16.2); Immature Granulocytes % 0.2 %; Mean Corpuscular HGB Conc 35.1 g/dL (31.8-35.4); Mean Corpuscular Hemoglobin 32.7 pg (27.0-31.2); Mean Corpuscular Volume 93.1 fl (81-99); Nucleated Red Blood Cells % 0 %; Platelet Count 128 K/mm3 (142-424); Red Blood Count 3.94 M/mm3 (4.20-5.40); Red Cell Distribution Width-SD 47.6 fL; White Blood Count 10.0 K/mm3 (4.8-10.8)
[2025-01-05 19:42] LABS: Albumin Level 4.1 g/dl (3.5-5.0); Chloride 107 mmol/L (98-107)
[2025-01-05 19:43] LABS: Potassium 3.8 mmoL/L (3.5-5.1); Sodium 139 mmol/L (136-145)
[2025-01-05 19:45] LABS: Alanine Aminotransferase 45 U/L (12-78); Albumin/Globulin Ratio 1.3 (1.1-1.8); Alkaline Phosphatase 168 U/L (38-126); Anion Gap 11.8 mEq/L (5-15); Aspartate Amino Transferase 106 U/L (14-36); Bilirubin,Total 1.5 mg/dl (0.2-1.3); Blood Urea Nitrogen 9 mg/dl (7-17); Carbon Dioxide 24 mmol/L (22.0-30.0); Creatinine Clearance Estimated 248 mL/min (50-200); Creatinine,Serum 0.40 mg/dl (0.52-1.04); Estimated Glomerular Filt Rate 180 ml/min (>60); GFR (African American) 217 ML/MIN (>60); Globulin 3.2 g/dL (1.3-3.2); Total Protein,Serum 7.3 g/dl (6.3-8.2)
[2025-01-05 19:46] LABS: Calcium 8.9 mg/dl (8.4-10.2); Glucose 103 mg/dl (74-100)
[2025-01-05 20:00] LABS: Troponin I < 0.01 ng/ml (0.00-0.034)
[2025-01-05 21:27] LABS: Troponin I < 0.01 ng/ml (0.00-0.034)
== END 2025-01-05 22:00 | disposition home or self-care (01) ==
PROVIDERS: Emergency Provider Student in an Organized Health Care Education/Training Program
DX: R07.9 Chest pain, unspecified (principal); R11.0 Nausea; F17.210 Nicotine dependence, cigarettes, uncomplicated
CPT/HCPCS: 71045; 80053; 84484; 85025; 93005; 99284

== ENCOUNTER 2025-02-21 14:36 | Outpatient (CLI) | payer MEDICAID, SELFPAY ==
--- NOTE | 2025-02-21 14:30 | CA_ITS ---
APPROVED REPORT EXAM: Comprehensive 2D, Doppler, and color-flow Echocardiogram Carton Catcher: MERCEDES Malone, RVS Ht: 5 ft 8 in Wt: 215lbs BSA: 2.11 BP: 121/76 mmHg Indications: CP, Smoker, dyspnea, Fatigue 2D Dimensions Left Atrium 2.74 cm LA Volume 58.10 mL LA Volume Index 26.90 mL/m2 (M/F) 16-34 M-Mode Dimensions RVDd 0.90 cm (0.9-2.6) LA Diam 3.62 cm (1.9-4.0) LVDd 5.45 cm (3.5-5.7) LVDs 3.80 cm (3.5-5.7) IVSd 1.04 cm (0.6-1.1) PWd 1.04 cm (0.6-1.1) EF (Teich) 57.10% EPSs 0.36 cm FS 30.30% EDV (Teich) 144.40 mL TAPSE 2.78 (<1.7) ESV (Teich) 62.00 mL LV Diastology E Decel Time 237 (160-240 msec) E/A Ratio 1.13 MED A' 8.60 cm/s LAT A' 10.20 cm/s Aortic Valve SAURAV Index 1.26 cm2/m2 AoV Peak Yazan. 149.0 (50-130 cm/s) AO Peak GR. 8.90 mmHg AO Mean GR. 4.40 (<5 mmHg) AO VTI 29.6 (18-25 cm) SAURAV (VTI) 2.73 (2.5-4.5 cm2) Mitral Valve MV A Velocity 80.0 (40-130 cm/s) E/A Ratio 1.13 Left Ventricle The left ventricle is normal size. Left ventricular systolic function is normal. The left ventricular ejection fraction is within the normal range. There is normal left ventricular wall thickness. There is normal LV segmental wall motion. The left ventricular diastolic function is normal. LVEF is 55% Right Ventricle The right ventricle is normal size. The right ventricular systolic function is normal. Atria The left atrium size is normal. The right atrium size is normal. There is no color Doppler evidence of interatrial shunt. Aortic Valve The aortic valve opens well. There is no hemodynamically significant aortic valvular stenosis. No aortic regurgitation is present. Mitral Valve The mitral valve is normal in structure. No evidence of mitral valve stenosis. Trace mitral regurgitation is present. Tricuspid Valve The tricuspid valve leaflets are thin and pliable. Trace tricuspid regurgitation. There is insufficient TR jet to estimate RVSP. Pulmonic Valve The pulmonary valve is grossly normal in structure. Trace pulmonic valve regurgitation is present. Great Vessels The aortic root is normal in size. IVC is normal in size and collapses >50% with inspiration. Pericardium There is no pericardial effusion. Other Information Study Quality: Fair Conclusion Normal biventricular systolic function. No significant valvular stenosis or regurgitation. Electronically signed by : Autumn Soliman MD 02/24/2025 22:50:25
== END 2025-02-21 23:59 | disposition home or self-care (01) ==
LOC: RT 14:37
PROVIDERS: PCP Nurse Practitioner Family; Visit Provider Physician Assistant
DX: R07.9 Chest pain, unspecified (principal); F17.200 Nicotine dependence, unspecified, uncomplicated; R06.00 Dyspnea, unspecified; R53.83 Other fatigue
CPT/HCPCS: 93306

== ENCOUNTER 2025-02-26 12:25 | Outpatient (CLI) | payer MEDICAID, SELFPAY ==
--- NOTE | 2025-02-26 | CA_ITS ---
APPROVED REPORT Exam: Pharmacologic Technologist: Clau Trinidad Stress Nurse: Lachelle PATE, RN Ht: 5 ft 8 in Wt: 214 lbs BSA: 2.10 m2 HR: 66 bpm BP: 144/88 mmHg Indications: Chest pain Stress Test Details Test: Lexiscan HR Resting HR: 66 bpm Max Heart Rate (APMHR): 183.826973 bpm Max HR Achieved: 98 bpm Target HR (85% APMHR): 155.055941 bpm % of APMHR: 53.55 Recovery HR: 79 bpm BP Resting BP: 141.0/88.0 mmHg Max BP: 145.0/86.0 mmHg Recovery BP: 145.0/86.0 mmHg ECG Stress ECG Conclusion Lungs clear to auscultation prior to test start. Symptoms: None Arrhythmias/Ectopy: None ST-T Changes: Less than 0.[address] segment changes. Conclusion: Nondiagnostic ECG/Lexiscan Electronically signed by : Autumn Soliman MD 02/26/2025 21:17:48
--- NOTE | 2025-02-26 12:00 | NM_ITS ---
APPROVED REPORT Exam: Nuclear Stress Test Indication: cp..soa Patient Location: Outpatient Stress Tech: Clau Trinidad NM Tech:Margot Martin, YANELIT, RT (R)(N) Ht: 5 ft 7 in Wt: 210 lbs Bra Size: 40d HR: 63 bpm BP: 141/88 mmHg BSA: 2.07 m2 TID: 1.36 BMI: 32.8 History: cp..soa Procedure: Patient received 0.4 mg of intravenous Lexiscan, resting heart rate 63 bpm, resting blood pressure 141/88 mmHg, with Lexiscan maximum heart rate achieved was 98 bpm which is 85 % of the maximum predicted heart rate and blood pressure was 145/86 mmHg. With Lexiscan, patient denied any complaint of chest pain. Cardiac Stress and Resting SPECT Images: Cardiac Stress and Resting SPECT images were obtained using technetium 99m Myoview 31.2 mCi stress and 9.55 mCi at rest. Resting and stress imaging in supine and prone positions demonstrate a small sized, mild, fixed perfusion defect in the basal anterior LV wall. There is also increase in transient ischemic dilatation ratio (TID 1.36), which may be suggestive of possible multivessel disease or balanced ischemia. Gated imaging demonstrates normal global LV systolic function. LVEF is calculated at 55%. Conclusion: Small sized, mild, fixed perfusion defect in the basal anterior LV wall. There is also increase in transient ischemic dilatation ratio (TID 1.36), which may be suggestive of possible multivessel disease or balanced ischemia. Gated imaging demonstrates normal global LV systolic function. LVEF is calculated at 55%. Electronically signed by : Autumn Soliman MD 02/26/2025 21:24:05
--- OUTSIDE RECORDS SUMMARY | 2025-02-26 12:27 | XMS_ITS | Data Portability ---
Author Organization [facility] [employer] [facility] Address [address] [place] [address] Assessment Encounter Date Assessment Date Assessment LastModified by Organization Details LastModified Time 09/01/2022 09/01/2022 Patient with symptoms of acute OM of the right ear. Will treat as noted below. Advised to return if symptoms do not resolve or worsen over the next week. [email or web address] Not available 09/01/2022 17:47:52 Plan of Treatment Reminders Order Date Submit Date Provider Last Modified By Organization Details Last Modified Time Details Appointments FOLLOW UP 15 2024 01:45P Saurabh Wong APRN Not available Not available Not available Lab HbA1c (hemoglob in A1c), blood 2024 025 [facility] [address] [place], [address], 06/21/2024 10:07:54 D-dimer, quant, plasma 2024 025 [facility] [address] [place] [address], [address], 06/21/2024 10:07:54 lipid panel, serum 2024 025 [place] [facility], [address] [place], [address], 06/21/2024 10:07:54 CBC w/ auto diff 2024 025 [facility] [place], [address], 06/21/2024 10:07:53 CMP, serum or plasma 2024 025 [place] [facility]), [address] [place], [address], 06/21/2024 10:07:53 TSH + free T4, serum 2024 025 [place] [facility]), [address] [place], [address], 06/21/2024 10:07:52 Referral None recorded. Procedures None recorded. Surgeries None recorded. Imaging US, duplex, venous, lower extremity - STAT [address], [address] [facility], [place], [address], 06/21/2024 10:46:42 Medication Orders Linzess 145 mcg capsule 2024 025 [facility], [address] [place] [address], [address], 11/27/2024 18:09:42 cephalexi n 500 mg capsule [address], [address] [place] [address], [address], 10/24/2024 13:19:52 Patient TargetsNo targets recorded. Patient InstructionsNo instructions recorded. Reason for Referral None Reported. Results Created Date Observation Date Name Description Value Unit Range Abnormal Flag Note LastModifiedBy Organization Detail LastModifiedTime 06/20/1906/21/2024 TSH+F REE T4 TSH 1.800 uIU/m L 0.450- 4.500 normal Not Available [facility] ([facility]) [address] [facility], [place], [address], 06/21/2024 10:07:52 06/20/19 25 06/21/2024 TSH+F REE T4 T4,free(dire ct) 0.75 NG/dL 0.82-1 .77 below low normal Not Available [facility] ([facility]) [address] [place], [address], 06/21/2024 10:07:52 06/20/19 25 06/21/2024 CBC WITH DIFFE RENTI AL/PL ATELE T WBC 5.2 x10e3 /uL 3.4-10 .8 normal Not Available [facility] ([facility]) [address] [place], [address], 06/21/2024 10:07:53 06/20/19 25 06/21/2024 CBC WITH DIFFE RENTI AL/PL ATELE T RBC 3.79 x10e6 /uL 3.77-5 .28 normal Not Available [facility] ([facility]) [address] [place], [address], 06/21/2024 10:07:53 06/20/19 25 06/21/2024 CBC WITH DIFFE RENTI AL/PL ATELE T hemoglobin 12.3 g/dL 11.1-1 5.9 normal Not Available [facility] ([facility]) [address] [place], [address], 06/21/2024 10:07:53 06/20/19 25 06/21/2024 CBC WITH DIFFE RENTI AL/PL ATELE T hematocrit 36.3 % 34.0-4 6.6 normal Not Available [facility] ([facility]) [address] [place], [address], 06/21/2024 10:07:53 06/20/19 25 06/21/2024 CBC WITH DIFFE RENTI AL/PL ATELE T MCV 96 fL 79-97 normal Not Available [facility] ([facility]) [address] [place], [address], 06/21/2024 10:07:53 06/20/19 25 06/21/2024 CBC WITH DIFFE RENTI AL/PL ATELE T MCH 32.5 pg 26.6-3 3.0 normal Not Available [facility] ([facility]) [address] [place], [address], 06/21/2024 10:07:53 06/20/19 25 06/21/2024 CBC WITH DIFFE RENTI AL/PL ATELE T MCHC 33.9 g/dL 31.5-3 5.7 normal Not Available [facility] ([facility]) [address] [facility], [place], [address], 06/21/2024 10:07:53 06/20/19 25 06/21/2024 CBC WITH DIFFE RENTI AL/PL ATELE T RDW 13.7 % 11.7-1 5.4 Not Available [facility] ([facility]) [address] [facility], [place], [address], 06/21/2024 10:07:53 06/20/19 25 06/21/2024 CBC WITH DIFFE RENTI AL/PL ATELE T platelets 157 x10e3 /uL 150-45 0 normal Not Available [facility] ([facility]) [address] [place], [address], 06/21/2024 10:07:53 06/20/19 25 06/21/2024 CBC WITH DIFFE RENTI AL/PL ATELE T neutrophils 49 % not estab. normal Not Available [facility] ([facility]) [address] [place], [address], 06/21/2024 10:07:53 06/20/19 25 06/21/2024 CBC WITH DIFFE RENTI AL/PL ATELE T lymphs 35 % not estab. normal Not Available [facility] ([facility]) [address] [place], [address], 06/21/2024 10:07:53 06/20/19 25 06/21/2024 CBC WITH DIFFE RENTI AL/PL ATELE T monocytes 11 % not estab. normal Not Available [facility] ([facility]) [address] [facility], [place], [address], 06/21/2024 10:07:53 06/20/19 25 06/21/2024 CBC WITH DIFFE RENTI AL/PL ATELE T eos 4 % not estab. normal Not Available [facility] ([facility]) [address] [facility], [place], [address], 06/21/2024 10:07:53 06/20/19 25 06/21/2024 CBC WITH DIFFE RENTI AL/PL ATELE T basos 1 % not estab. normal Not Available [facility] ([facility]) [address] [facility], [place], [address], 06/21/2024 10:07:53 06/20/19 25 06/21/2024 CBC WITH DIFFE RENTI AL/PL ATELE T immature cells CONTROL PANEL BUILDER Not Available [facility] ([facility]) [address] [place], [address], 06/21/2024 10:07:53 06/20/19 25 06/21/2024 CBC WITH DIFFE RENTI AL/PL ATELE T neutrophils (absolute) 2.6 x10e3 /uL 1.4-7. 0 normal Not Available [facility] ([facility]) [address] [place], [address], 06/21/2024 10:07:53 06/20/19 25 06/21/2024 CBC WITH DIFFE RENTI AL/PL ATELE T lymphs (absolute) 1.8 x10e3 /uL 0.7-3. 1 normal Not Available [facility] ([facility]) [address] [place], [address], 06/21/2024 10:07:53 06/20/19 25 06/21/2024 CBC WITH DIFFE RENTI AL/PL ATELE T monocytes(ab solute) 0.6 x10e3 /uL 0.1-0. 9 normal Not Available [facility] ([facility]) [address] [facility], [place], [address], 06/21/2024 10:07:53 06/20/19 25 06/21/2024 CBC WITH DIFFE RENTI AL/PL ATELE T eos (absolute) 0.2 x10e3 /uL 0.0-0. 4 normal Not Available [facility] ([facility]) [address] [facility], [place], [address], 06/21/2024 10:07:53 06/20/19 25 06/21/2024 CBC WITH DIFFE RENTI AL/PL ATELE T baso (absolute) 0.0 x10e3 /uL 0.0-0. 2 normal Not Available [facility] ([facility]) [address] [facility], [place], [address], 06/21/2024 10:07:53 06/20/19 25 06/21/2024 CBC WITH DIFFE RENTI AL/PL ATELE T immature granulocytes 0 % not estab. Not Available [facility] ([facility]) [address] [facility], [place], [address], 06/21/2024 10:07:53 06/20/19 25 06/21/2024 CBC WITH DIFFE RENTI AL/PL ATELE T immature grans (abs) 0.0 x10e3 /uL 0.0-0. 1 Not Available [facility] ([facility]) [address] [place], [address], 06/21/2024 10:07:53 06/20/19 25 06/21/2024 CBC WITH DIFFE RENTI AL/PL ATELE T NRBC CONTROL PANEL BUILDER Not Available [facility] ([facility]) [address] [facility], [place], [address], 06/21/2024 10:07:53 06/20/19 25 06/21/2024 CBC WITH DIFFE RENTI AL/PL ATELE T hematology comments: CONTROL PANEL BUILDER Not Available [facility] ([facility]) [address] [facility] [place], [address], 06/21/2024 10:07:53 06/20/19 25 06/21/2024 COMP. METAB OLIC PANEL (14) glucose 82 mg/dL 70-99 normal Not Available [facility] ([facility]) [address] [facility] [place], [address], 06/21/2024 10:07:53 06/20/19 25 06/21/2024 COMP. METAB OLIC PANEL (14) BUN 7 mg/dL 6-20 normal Not Available [facility] ([facility]) [address] [facility] [place], [address], 06/21/2024 10:07:53 06/20/19 25 06/21/2024 COMP. METAB OLIC PANEL (14) creatinine 0.47 mg/dL 0.57-1 .00 below low normal Not Available [facility] ([facility]) [address] [facility] [place], [address], 06/21/2024 10:07:53 06/20/19 25 06/21/2024 COMP. METAB OLIC PANEL (14) eGFR 126 mL/mi n/1.7 3 >59 normal Not Available [facility] ([facility]) [address] [place], [address], 06/21/2024 10:07:53 06/20/19 25 06/21/2024 COMP. METAB OLIC PANEL (14) BUN/creatini ne ratio 15 9-23 normal Not Available [facility] ([facility]) [address] [facility] [place], [address], 06/21/2024 10:07:53 06/20/19 25 06/21/2024 COMP. METAB OLIC PANEL (14) sodium 138 mmol/ L 134-14 4 normal Not Available [facility] ([facility]) [address] [place], [address], 06/21/2024 10:07:53 06/20/19 25 06/21/2024 COMP. METAB OLIC PANEL (14) potassium 3.8 mmol/ L 3.5-5. 2 normal Not Available [facility] ([facility]) [address] [place], [address], 06/21/2024 10:07:53 06/20/19 25 06/21/2024 COMP. METAB OLIC PANEL (14) chloride 104 mmol/ L 96-106 normal Not Available [facility] ([facility]) [address] [place], [address], 06/21/2024 10:07:53 06/20/19 25 06/21/2024 COMP. METAB OLIC PANEL (14) carbon dioxide, total 21 mmol/ L 20-29 normal Not Available [facility] ([facility]) [address] [place], [address], 06/21/2024 10:07:53 06/20/19 25 06/21/2024 COMP. METAB OLIC PANEL (14) calcium 9.4 mg/dL 8.7-10 .2 normal Not Available [facility] ([facility]) [address] [place], [address], 06/21/2024 10:07:53 06/20/19 25 06/21/2024 COMP. METAB OLIC PANEL (14) protein, total 7.7 g/dL 6.0-8. 5 normal Not Available [facility] ([facility]) [address] [place], [address], 06/21/2024 10:07:53 06/20/19 25 06/21/2024 COMP. METAB OLIC PANEL (14) albumin 4.1 g/dL 3.9-4. 9 normal Not Available [facility] ([facility]) [address] [place], [address], 06/21/2024 10:07:53 06/20/19 25 06/21/2024 COMP. METAB OLIC PANEL (14) globulin, total 3.6 g/dL 1.5-4. 5 Not Available [facility] ([facility]) [address] [place], [address], 06/21/2024 10:07:53 06/20/19 25 06/21/2024 COMP. METAB OLIC PANEL (14) bilirubin, total 1.2 mg/dL 0.0-1. 2 normal Not Available [facility] ([facility]) [address] [place], [address], 06/21/2024 10:07:53 06/20/19 25 06/21/2024 COMP. METAB OLIC PANEL (14) alkaline phosphatase 102 IU/L 44-121 normal Not Available [facility] ([facility]) [address] [place], [address], 06/21/2024 10:07:53 06/20/19 25 06/21/2024 COMP. METAB OLIC PANEL (14) AST (SGOT) 38 IU/L 0-40 normal Not Available [facility] ([facility]) [address] [place], [address], 06/21/2024 10:07:53 06/20/19 25 06/21/2024 COMP. METAB OLIC PANEL (14) ALT (SGPT) 19 IU/L 0-32 normal Not Available [facility] ([facility]) [address] [place], [address], 06/21/2024 10:07:53 06/20/19 25 06/21/2024 LIPID PANEL cholesterol, total 152 mg/dL 100-19 9 normal Not Available [facility] ([facility]) [address] [place], [address], 06/21/2024 10:07:54 06/20/19 25 06/21/2024 LIPID PANEL triglyceride s 65 mg/dL 0-149 normal Not Available [facility] ([facility]) [address] [place], [address], 06/21/2024 10:07:54 06/20/19 25 06/21/2024 LIPID PANEL HDL cholesterol 56 mg/dL >39 normal Not Available [facility] ([facility]) [address] [place], [address], 06/21/2024 10:07:54 06/20/19 25 06/21/2024 LIPID PANEL VLDL cholesterol jennifer 13 mg/dL 5-40 Not Available [facility] ([facility]) [address] [place], [address], 06/21/2024 10:07:54 06/20/19 25 06/21/2024 LIPID PANEL LDL chol calc ([facility]) 83 mg/dL 0-99 Not Available [facility] ([facility]) [address] [place], [address], 06/21/2024 10:07:54 06/20/19 25 06/21/2024 LIPID PANEL LDL calc comment: CONTROL PANEL BUILDER Not Available [facility] ([facility]) [address] [place], [address], 06/21/2024 10:07:54 06/20/19 25 06/21/2024 HEMOG LOBIN A1C hemoglobin A1C 5.7 % 4.8-5. 6 above high normal Predi abete s: 5.7 - 6.4 Diabe syl: >6.4 Glyce cornell contr ol for adult s with diabe syl: <7.0 Not Available [facility] ([facility]) [address] [place], [address], 06/21/2024 10:07:54 06/20/19 25 06/21/2024 D-DIM ER D-dimer 0.57 mg/L_ feu 0.00-0 .49 above high normal Accor ding to the assay manuf actur er's publi shed packa ge inser t, a wally l (<0.5 0 mg/L FEU) D-dim er resul t in conju nctio n with a non-h igh clini jennifer proba bilit y asses sment , exclu [place] deep vein throm bosis (DVT) and pulmo nary embol ism (PE) with high sensi tivit y. D-dim er value s incre ase with age and this can make VTE exclu mark of an older popul ation diffi cult. To addre ss this, the Ameri can Colle ge of Physi cians , based on best avail able evide nce and recen t guide lines , recom mends that clini cians use age-a djust ed D-dim er thres holds in patie nts great er than 50 years of age with: a) a low proba bilit y of PE who do not meet all Pulmo nary Embol ism Rule Out Crite racquel, or b) in those with inter media te proba bilit y of PE. The formu la for an age-a djust ed D-dim er cut-o ff is age/ 100 . For examp le, a 60 year old patie nt would have an age-a djust ed cut-o ff of 0.60 mg/L FEU and an 80 year old 0.80 mg/L FEU. Not Available [facility] ([facility]) [address] [facility], [place], [address], 06/21/2024 10:07:54 05/03/20 24 05/02/2024 liver elast ograp hy, mecha nical ly induc ed shear wave (PROC ) No observ ation record ed. [email or web address] [facility] [address], [place], [address], 05/03/2024 10:58:44 06/21/19 25 US, mihir x, main s, lower extre mity No observ ation record ed. [email or web address], [place], [address], 06/24/2024 10:02:08 06/24/19 25 XR, chest , 2 view No observ ation record ed. [email or web address] [address], [place], [address], 06/27/2024 14:15:07 02/25/20 25 02/21/2025 imagi ng/di agnos tic resul t No observ ation record ed. [facility] [address], [place], [address], 02/25/2025 08:29:33 Result Notes None recorded. Problems Name Problem SNOMED Code Status Onset Date Resolution Date Notes Provider Name and Address Organization Details Recorded Time Precordi al pain 95663486 Completed 201601/23/2017 Problem Code: R07.2; Problem Code Type: ICD-10; Not Available [facility] 2 20:54:27 Restless legs syndrome 07643694 Completed 201601/21/2019 Problem Code: G25.81; Problem Code Type: ICD-10; Not Available [facility] 2 20:54:25 Constipa tion 39463409 Completed 201601/21/2019 Not Available [facility] 2 20:54:26 [place] lesion of lung 261036797 Completed 201601/21/2019 Problem Code: R91.1; Problem Code Type: ICD-10; Not Available [facility] 2 20:54:27 Generali zed anxiety disorder 38620089 Completed 201601/21/2019 Problem Code: F41.1; Problem Code Type: ICD-10; Not Available [facility] 2 20:54:25 Restless legs syndrome 57854228 Completed 201601/21/2019 Problem Code: G25.81; Problem Code Type: ICD-10; Not Available [facility] 2 20:54:25 Constipa tion 48192773 Active 2016 Not Available [facility] 2 20:54:26 Slow transit constipa tion 72484634 Active 2016 Problem Code: 564.01; Problem Code Type: ICD-9; Not Available [facility] 2 20:54:30 Candidal otitis externa 38091653 Completed 201708/12/2017 Problem Code: B37.84; Problem Code Type: ICD-10; Not Available [facility] 2 20:54:25 Acute suppurat esvin otitis media 696414100 Completed 201708/12/2017 Not Available [facility] 2 20:54:25 Acute suppurat esvin otitis media without spontane ous rupture of ear drum 23723108 Completed 201708/12/2017 Problem Code: 382.00; Problem Code Type: ICD-9; Not Available [facility] 2 20:54:30 Knee pain Completed 201709/28/2017 Not Available [facility] 2 20:54:26 Injury involvin g multiple body regions 868844151 Completed 201701/21/2019 Not Available [facility] 2 20:54:27 Nonvenom ous insect bite of multiple sites 019397582 Active 2017 Problem Code: 919.4; Problem Code Type: ICD-9; Not Available [facility] 2 20:54:31 Acute cystitis 65086766 Completed 201702/13/2018 Problem Code: N30.00; Problem Code Type: ICD-10; Not Available [facility] 2 20:54:26 Acquired hallux malleus 65677017 Active 2018 Problem Code: M20.40; Problem Code Type: ICD-10; Not Available [facility] 2 20:54:26 Hepatiti s C carrier 660281442 Active 2019 Problem Code: B18.2; Problem Code Type: ICD-10; Not Available [facility] 2 20:54:25 Abnormal weight gain 585563510 Completed 201904/24/2020 Problem Code: R63.5; Problem Code Type: ICD-10; Not Available [facility] 2 20:54:27 Finding of general energy 184855880 Completed 201909/15/2020 Problem Code: R53.83; Problem Code Type: ICD-10; Not Available [facility] 2 20:54:27 General examinat ion of patient Active 2019 Not Available [facility] 2 20:54:28 Viral screenin g Active 2019 Problem Code: Z11.59; Problem Code Type: ICD-10; Not Available [facility] 2 20:54:28 Influenz a vaccine needed 98853838575 06 Completed 201904/24/2020 Problem Code: Z23; Problem Code Type: ICD-10; Not Available [facility] 2 20:54:29 Body mass index 30+ - obesity 039433677 Completed 201904/24/2020 Problem Code: Z68.34; Problem Code Type: ICD-10; Not Available [facility] 2 20:54:29 Sampling of vagina for Papanico laou smear Completed 201904/24/2020 Problem Code: Z01.419; Problem Code Type: ICD-10; Not Available [facility] 2 20:54:28 Acute hepatiti s C 859263560 Active 2019 Problem Code: B17.10; Problem Code Type: ICD-10; Not Available [facility] 2 20:54:25 Neck pain 43294655 Completed 201909/15/2020 Not Available [facility] 2 20:54:26 Spasm 28206806 Completed 201909/15/2020 Problem Code: M62.838; Problem Code Type: ICD-10; Not Available [facility] 2 20:54:26 Acute suppurat esvin otitis media 574859947 Active 2020 [facility] Available [facility] 2 20:54:25 Obstruct ion of [place] an tube 94054443 Active 2020 Not Available [facility] 2 20:54:25 Upper abdomina l pain 91351437 Active 2020 Not Available [facility] 2 20:54:27 Tobacco dependen ce caused by cigarett es 70184181681 456033 Active 2020 Problem Code: F17.210; Problem Code Type: ICD-10; Not Available [facility] 2 20:54:25 Body mass index 30+ - obesity 599493316 Active 2020 Problem Code: Z68.30; Problem Code Type: ICD-10; Not Available [facility] 2 20:54:29 Epigastr ic hernia 337500487 Active 2020 Problem Code: K43.9; Problem Code Type: ICD-10; Not Available [facility] 2 20:54:26 Acute otitis media 5507411 Active [address], [address] [facility] [employer] 3 17:42:58 Dyspnea 538329242 Active 2024 Joanna hsu, [employer] 5 09:45:38 Notes:*Problem Name: Left up per quadrant abdominal swelling, mass and lump *Problem Status: Chronic *Comments: *Problem Code: R19.02 *Problem Code Type: ICD-10 *Note Date: 01/26/2021 Problem Notes None recorded. Procedures Surgical History Date Name Laterality Status Provider Name and Address Organization Details Recorded Time 03/24/20 20 ligation of bilateral fallopian tubes completed Not Available [facility] 01/18/2022 22:56:17 section completed [facility] 09/01/2022 17:33:18 tonsilectomy/ad enoids completed [facility] 09/01/2022 17:33:32 Knee Replacement completed [facility] 09/01/2022 17:33:43 Imaging Results None recorded. Procedure Notes None recorded. Medical Equipment None Reported. Allergies Allergen ID Allergen Name Allergen Category Reaction Reaction Severity Criticality Documentation Date Start Date Code Code System Note Provider Name and Address Organization Details Recorded Time 64782 Product containin g penicilli n (product) medicatio n Not available Not available Not available 09/01/2022 13572 8001 SNOMED MAREK BENNETT [facility], [facility] 3 17:29:02 Medications Name Sig Start Date Stop Date Status Note LastModified by Organization Details LastModified Time cyclobenzap rine 10 mg tablet TAKE ONE TABLET BY MOUTH THREE TIMES DAILY NEEDED active Not Available Not Available No t Available Miralax 17 gram/dose oral powder take 17 gram mixed with 8 oz. water, juice, soda, coffee or tea by oral route once daily 09/01 completed Not Available Not Available Not Available methocarbam ol 500 mg tablet take 2 tablets (1,000 mg) by oral route 4 times per day x7 days 09/15 completed Not Available Not Available Not Available prednisone 10 mg tablet take 1 tablet (10 mg) by oral route 3 times per day x3 days 09/15 completed Not Available Not Available Not Available doxycycline hyclate 100 mg capsule Take 1 capsule(s ) by mouth bid 01/15 completed Not Available Not Available Not Available naproxen 375 mg tablet take 1 tablet (375 mg) by oral route 2 times per day with food 09/15 completed Not Available Not Available Not Available meloxicam 15 mg tablet once a day as needed 12/13 completed Not Available Not Available Not Available prednisone 20 mg tablet TAKE ONE TABLET BY MOUTH THREE TIMES DAILY FOR 3 DAYS 10/24 completed Not Available Not Available Not Available gabapentin 400 mg capsule 1 po qhs 09/02 completed Not Available Not Available Not Available sertraline 100 mg tablet TAKE TWO TABLETS BY MOUTH EVERY DAY 09/01 completed Not Available Not Available Not Available prednisone 5 mg tablet 10 pills po today and decrease by one pill each day 02/01 completed Not Available Not Available Not Available Pyridium 100 mg tablet one by mouth every 8 hours 03/31 completed Not Available Not Available Not Available permethrin 5 % topical cream Apply and leave on overnight (at least 8 hours). Rinse in the a.m. 05/05 completed Not Available Not Available Not Available Zyrtec 10 mg tablet take 1 tablet (10 mg) by oral route once daily 09/01 completed Not Available Not Available Not Available amoxicillin 875 mg tablet Take 1 tablet(s) by mouth q12h for 10 days 07/23 completed Not Available Not Available Not Available Claritin-D 24 Hour 10 mg-240 mg tablet,exte nded release take 1 tablet by oral route once daily prn congestio n 01/26 completed Not Available Not Available Not Available cephalexin 500 mg capsule TAKE ONE CAPSULE BY MOUTH EVERY TWELVE HOURS FOR 7 DAYS 10/24 completed Not Available Not Available Not Available oseltamivir 75 mg capsule take 1 capsule (75 mg) by oral route once daily x 10 days 03/24 completed Not Available Not Available Not Available Cipro 500 mg tablet Take 1 tablet(s) by mouth q12h for 10 days 03/11 completed Not Available Not Available Not Available buspirone 10 mg tablet 1 tablet po bid prn 09/02 completed Not Available Not Available Not Available cefdinir 300 mg capsule take 1 capsule (300 mg) by oral route every 12 hours x 10 days 01/26 completed Not Available Not Available Not Available Ventolin HFA 90 mcg/actuati on aerosol inhaler 1-2 puffs every 4-6 hours as needed for cough or wheeze 03/10 completed Not Available Not Available Not Available hydroxyzine pamoate 25 mg capsule TAKE ONE CAPSULE BY MOUTH THREE TIMES DAILY 09/01 completed Not Available Not Available Not Available neomycin-po lymyxin-hyd rocort 3.5 mg-10,000 unit/mL-1 % ear drops,susp 3 drops in right ear TID x 7 days 08/12 completed Not Available Not Available Not Available buprenorphi ne 8 mg-naloxone [address] 1/2 TABLET UNDER THE TONGUE AND ALLOW TO DISSOLVE 1 TIME EACH DAY. active Not Available Not Available No t Available buprenorphi ne-naloxone Dissolve 2 tablet(s) on the tongue daily 09/01 completed Not Available Not Available Not Available Linzess 145 mcg capsule TAKE 1 CAPSULE BY MOUTH EVERY DAY active Not Available Not Available No t Available sofosbuvir 400 mg-velpatas vir 100 mg tablet TAKE ONE TABLET BY MOUTH EVERY DAY FOR 12 WEEKS 10/24 completed Not Available Not Available Not Available Afluria Qd (36 mos up)(PF)60 mcg (15 mcg x4)/0.5 mL IM syringe inject 0.5 millilite r (60 mcg) by intramusc ular route once 04/03 completed Not Available Not Available Not Available Flowflex COVID-19 Antigen Home Test kit 10/24 completed Not Available Not Available Not Available Vitals Date Recorded Body height Body mass index (BMI) Body weight Heart rate Oxygen saturation Oxygen saturation in Arterial blood by Pulse oximetry Systolic And Diastolic Provider Name and Address Organization Details Last Updated DateTime 5 167.64 cm 34.1 kg/m2 06975.9 9 g 85 /min 94 % 94 % 129/77 mm[Hg] Joanna Ruddlly [employer] 5 15:52:50 Date Recorded Body weight Body mass index (BMI) Body height Heart rate Oxygen saturation Oxygen saturation in Arterial blood by Pulse oximetry Systolic And Diastolic Provider Name and Address Organization Details Last Updated DateTime 3 112739. 28 g 36.3 kg/m2 167.64 cm 77 /min 99 % 99 % 129/85 mm[Hg] MAREK BENNETT [employer] 3 17:34:58 Date Recorded Body height Body mass index (BMI) Body weight Heart rate Oxygen saturation Oxygen saturation in Arterial blood by Pulse oximetry Systolic And Diastolic Provider Name and Address Organization Details Last Updated DateTime 5 167.64 cm 33.6 kg/m2 74174.2 1 g 82 /min 97 % 97 % 127/83 mm[Hg] Joanna Hammondy [employer] 5 13:18:57 Date Recorded Body height Body mass index (BMI) Body weight Heart rate Oxygen saturation Oxygen saturation in Arterial blood by Pulse oximetry Systolic And Diastolic Provider Name and Address Organization Details Last Updated DateTime 5 167.64 cm 33.4 kg/m2 50029.6 2 g 85 /min 94 % 94 % 129/75 mm[Hg] Joanna Smith [employer] [employer] 5 16:08:04 Social History Question Answer Notes LastModified by Organizat ion Details LastModified Time Tobacco Smoking Status Current Every Day Smoker MAREK hsu, [employer] 09/01/2022 17:31:16 Do You Have An Advance Directive? No [email or web address] Information not available 09/01/2022 Is Your Home Air Conditioned? Yes [email or web address] Information not available 09/01/2022 Are You A Caregiver? No [email or web address] Information not available 09/01/2022 Have You Been To An Area Known To Be High Risk For COVID-19? No Information not available 09/01/2022 Have There Been Any Changes To Your Family Or Social Situation? No [email or web address] Information no t available 09/01/2022 Do You Have A Medical Power Of Tool And Die Rep[employer]? No [email or web address] Information not available 09/01/2022 What Was The Date Of Your Most Recent Tobacco Screening? 11/22/2024 [email or web address] Information not available 11/22/2024 What Is Your Current Pack Years? [email or web address] Information not available 09/01/2022 What Is Your Relationship Status? Domestic Partner [email or web address] Information not available 09/01/2022 Do You Use Your Seat Belt Or Car Seat Routinely? Yes Information not available 09/01/2022 Do You Have Smoke And Carbon Monoxide Detectors In Your Home? Yes Information not available 09/01/2022 Are You Passively Exposed To Smoke? Yes [email or web address] Information no t available 09/01/2022 Are There Any Smokers In Your House? Yes [email or web address] Information not available 09/01/2022 How Much Tobacco Do You Smoke? 0.25 PPD [email or web address] Information not available 09/01/2022 How Many Years Have You Smoked Tobacco? 5 Information not available 09/01/2022 Have You Recently Traveled Abroad? No [email or web address] Information not available 09/01/2022 Are You Currently In School? No Information not available 09/01/2022 Sex: Female Functional Status Question Answer Note LastModified by Organizat ion Details LastModified Time Do you use any illicit or recreational drugs? No Prior use of opiates [email or web address] Information not available 09/01/2022 Do you or have you ever used any other forms of tobacco or nicotine? Yes [email or web address] Information not available 09/01/2022 What is your level of alcohol consumption? None [email or web address] Information not available 09/01/2022 Do you or have you ever used smokeless tobacco? Never used smokeless tobacco [id number] Information not available 09/01/2022 Are you currently employed? No [email or web address] Information not available 09/01/2022 Do you or have you ever used e-cigarettes or vape? Current user of electronic cigarettes [email or web address] Information not available 09/01/2022 Mental Status None recorded. Family History Relationship Description Onset Age of this Age Resolved Age Notes LastModified by Organization Details LastModified Time Mother Family history of Hypertension [email or web address] Not available 09/01/2022 17:30:23 Sister Family history of drug abuse [email or web address] Not available 17:30:38 Sister Family history of alcoholism [email or web address] Not available 17:30:47 Father Family history of diabetes mellitus type 2 [email or web address] Not available 17:31:00 Paternal Grandmother Family history of diabetes mellitus type 2 [email or web address] Not available 17:31:02 Paternal Grandfather Family history of diabetes mellitus type 2 [email or web address] Not available 17:31:05 Medical History Condition Response Hepatitis Y COPD Y Gynecological History Statement/Question Response Date of Last Pap Smear Most Recent Mammogram Obstetrics History GPAL:G 0 P 0 0 0 0 Immunizations Vaccine Type Date Status Note Provider Nam e and Address Organization Details Recorded Time Influenza, split virus, quadrivalent, preservative 8 completed Not Available [facility] 01/18/2022 23:36:48 Hep B, adult 5 completed Joanna hsu, [facility] [employer] 10/24/2024 14:21:42 Hep B, adult 5 completed Joanna hsu, [facility] 11/22/2024 16:45:18 Hep A, adult 5 completed Joanna hsu, [facility] 11/22/2024 16:45:18 MMR 0 completed Not Available [facility] 11/22/2024 15:37:04 Hep B, adolescent or pediatric 0 completed Not Available [facility] 11/22/2024 15:37:04 Td (adult), 2 Lf tetanus toxoid, preservative free, adsorbed 4 completed Not Available [facility] 11/22/2024 15:37:04 Hep B, adolescent or pediatric 4 completed Not Available [facility] 11/22/2024 15:37:04 Novel Msyeduder-[id number] , all formulations 9 completed Not Available [facility] 11/22/2024 15:37:04 Influenza, split virus, trivalent, preservative 0 completed Not Available [facility] 11/22/2024 15:37:04 COVID-19, mRNA, LNP-S, PF, 100 mcg/0.5mL dose or 50 mcg/0.25mL dose 1 completed Not Available [facility] 11/22/2024 15:37:04 Past Encounters Encounter ID Performer Location Encounter Start Date Encounter Closed Date Diagnosis/Indication Diagnosis SNOMED-CT Code Diagnosis ICD10 Code Diagnosis IMO Codes Diagnosis Note [id number] KEKE NOBLES [address] 0 09/01/2022 17:25:10 09/01/2022 17:52:34 Acute otitis media 3436277 H66.91 [id number] Jany Wong APRN [place] [address] 0 06/20/2024 14:44:16 06/20/2024 15:47:46 Fatigue 47018239 R53.83 Hyperlipidemia 31084542 E78.5 Pain in ri ght lower limb 804588965 M79.604 Hyperglycemia 01082070 R 73.9 Body mass index 30+ - obesity 430042119 Z68.34 [id number] [place] [address] 10/24/2024 12:59:13 10/24/2024 14:07:28 Active immunization 82193460 Z23 99558542 Body mass index 30+ - obesity 027294365 Z68.33 284045 [id number] [place] [address] 11/22/2024 15:36:42 11/22/2024 16:35:34 Vaccination needed 8961299661 68654 Z23 393731 1st Hep B - 10/24/24; dose 2 today; f/u 6 months for final dose in the series.dos e 1 of Hep A today; follow up in 6 months for final dose in the series. Acute constipation 04727 9006 K59.00 917799 Body mass index 30+ - obesity 318249891 Z68.33 415611 Health Concerns Section Related Observation LastModified by Organization Detai ls LastModified Time None Recorded Concern Status LastModified by Organization Details LastModified Time None Recorded Advance Directives Directive N: Payers Insurance Date Sequence Insurance Name Policy Number Policy Font[employer]ot Covered Member ID Fontenot Member ID Guarantor Name 09/01/2022 1 *SELF PAY* Po Primo Victor 01/14/2025 1 [facility] (MEDICAID HMO) Aminata Victor [id number] Corey Victor 08/01/2024 1 UNSPECIFIED REMIT PAYOR Corey Victor Notes Date Note Type Note Provider Name and Address Organization Details Recorded Time 09/01/2022 text/html ROS as noted in the HPI Ear pain for three days. Right > Left. Mild sore throat. No cough. Patient has no history of seasonal allergies. KASSANDRA GILMAN-[address], [address], [facility] - [employer] 09/01/2022 17:56:12 06/20/2024 text/html 38 year old female presents with c/o of sudden onset right calf pain x 1 day and feeling hypoglycemic/shaky x 2 weeks.States she has been cleaning house and gets super shaky and weak during. Episodes have been becoming more frequent. During one episode, grandmother check BG and it was 47. She sat down and ate, which relieved symptoms. States her diet hasnt changed but doesnt eat proper meals. We discussed eating 3 healthy meals and healthy snack daily, especially prior to cleaning. We will also get labs today. Patient voices understanding and agreesRight calf pain came on suddenly yesterday. Denies injury. Pain has progressively worsened and now is hard to walk. Does note to have many spider veins that are painful but this is different. Upon exam, medial right lower calf erythematous, edematous to knee, warm and painful to touch. +homans signs. Will order stat Doppler's of RLE today. Pt agrees with plan Jany Wong APRN [address] [place] [address], [phone], [employer] 06/20/2024 16:03:47 10/24/2024 text/html pt here today for a hep a and hep b vaccine per recs from her GI doc. pt states that her gi doc recommended the vaccines after treating her for hep c. looking at dr rod note he states that she does need to vaccines due to no immunity. we had to order hep a, will give hep b. pt given appts to come back for boosters. Jany Wong APRN [address] [place], [address], [employer] 10/24/2024 15:49:43 11/22/2024 text/html pt here today for 2nd round of vaccines. pt states that she is doing well. states that her suboxone doc does not want her to have the adipex for wt loss. 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 i will prescribe for pt. Jany Wong APRN [address] [place], [address], [employer] 11/22/2024 18:30:28 OBGyn Episode No OBEpisode recorded.
[2025-02-26 13:30] VITALS: BP 141/88; PULSE 66; RESP 14
[2025-02-26] MEDS: ISOTOPE MYOVIEW (PER STUDY) 1 DOSE IV (13:47)
[2025-02-26] MEDS: SODIUM CHLORIDE 0.9% 10ML SYR (RAD ONLY) 10 ML IV ×2 (13:47)
== END 2025-02-26 23:59 | disposition home or self-care (01) ==
LOC: RAD 12:25
PROVIDERS: PCP Nurse Practitioner Family; Visit Provider Physician Assistant
DX: R94.39 Abnormal result of other cardiovascular function study (principal); R07.9 Chest pain, unspecified; R06.02 Shortness of breath
CPT/HCPCS: 78452; 93017; 93018; A9502; J2785

== ENCOUNTER 2025-03-06 14:11 | Outpatient (CLI) | payer MEDICAID, SELFPAY | END 2025-03-06 23:59 | disposition home or self-care (01) | LOC: RT 14:12 | PROVIDERS: PCP Nurse Practitioner Family; Visit Provider Physician Assistant | DX: R40.0 Somnolence (principal); R00.2 Palpitations; R07.9 Chest pain, unspecified; R94.39 Abnormal result of other cardiovascular function study; G47.8 Other sleep disorders | CPT/HCPCS: 93270 ==

== ENCOUNTER 2025-03-19 12:24 | Outpatient (CLI) | payer MEDICAID, SELFPAY ==
--- OUTSIDE RECORDS SUMMARY | 2025-03-19 12:28 | XMS_ITS | Data Portability ---
Author Organization [facility] [employer] [facility] Address [address] [place] [address] Assessment Encounter Date Assessment Date Assessment LastModified by Organization Details LastModified Time 09/01/2022 09/01/2022 Patient with symptoms of acute OM of the right ear. Will treat as noted below. Advised to return if symptoms do not resolve or worsen over the next week. [email or web address] Not available 09/01/2022 17:47:52 Plan of Treatment Reminders Order Date Submit Date Provider Last Modified By Organization Details Last Modified Time Details Appointments FOLLOW UP 15 2024 01:45P Saurabh Wong APRN Not available Not available Not available Lab HbA1c (hemoglob in A1c), blood 2024 025 [facility] [address] [place], [address], 06/21/2024 10:07:54 D-dimer, quant, plasma 2024 025 [facility] [address] [place] [address], [address], 06/21/2024 10:07:54 lipid panel, serum 2024 025 [place] [facility], [address] [place], [address], 06/21/2024 10:07:54 CBC w/ auto diff 2024 025 [facility] [place], [address], 06/21/2024 10:07:53 CMP, serum or plasma 2024 025 [place] [facility]), [address] [place], [address], 06/21/2024 10:07:53 TSH + free T4, serum 2024 025 [place] [facility]), [address] [place], [address], 06/21/2024 10:07:52 Referral None recorded. Procedures None recorded. Surgeries None recorded. Imaging US, duplex, venous, lower extremity - STAT [address], [address] [facility], [place], [address], 06/21/2024 10:46:42 Medication Orders Linzess 145 mcg capsule 2024 025 [facility], [address] [place] [address], [address], 11/27/2024 18:09:42 cephalexi n 500 mg capsule [address], [address] [place] [address], [address], 10/24/2024 13:19:52 Patient TargetsNo targets recorded. Patient InstructionsNo instructions recorded. Reason for Referral None Reported. Results Created Date Observation Date Name Description Value Unit Range Abnormal Flag Note LastModifiedBy Organization Detail LastModifiedTime 06/20/1906/21/2024 TSH+F REE T4 TSH 1.800 uIU/m L 0.450- 4.500 normal Not Available [facility] ([facility]) [address] [facility], [place], [address], 06/21/2024 10:07:52 06/20/19 25 06/21/2024 TSH+F REE T4 T4,free(dire ct) 0.75 NG/dL 0.82-1 .77 below low normal Not Available [facility] ([facility]) [address] [place], [address], 06/21/2024 10:07:52 06/20/19 25 06/21/2024 CBC WITH DIFFE RENTI AL/PL ATELE T WBC 5.2 x10e3 /uL 3.4-10 .8 normal Not Available [facility] ([facility]) [address] [place], [address], 06/21/2024 10:07:53 06/20/19 25 06/21/2024 CBC WITH DIFFE RENTI AL/PL ATELE T RBC 3.79 x10e6 /uL 3.77-5 .28 normal Not Available [facility] ([facility]) [address] [place], [address], 06/21/2024 10:07:53 06/20/19 25 06/21/2024 CBC WITH DIFFE RENTI AL/PL ATELE T hemoglobin 12.3 g/dL 11.1-1 5.9 normal Not Available [facility] ([facility]) [address] [place], [address], 06/21/2024 10:07:53 06/20/19 25 06/21/2024 CBC WITH DIFFE RENTI AL/PL ATELE T hematocrit 36.3 % 34.0-4 6.6 normal Not Available [facility] ([facility]) [address] [place], [address], 06/21/2024 10:07:53 06/20/19 25 06/21/2024 CBC WITH DIFFE RENTI AL/PL ATELE T MCV 96 fL 79-97 normal Not Available [facility] ([facility]) [address] [place], [address], 06/21/2024 10:07:53 06/20/19 25 06/21/2024 CBC WITH DIFFE RENTI AL/PL ATELE T MCH 32.5 pg 26.6-3 3.0 normal Not Available [facility] ([facility]) [address] [place], [address], 06/21/2024 10:07:53 06/20/19 25 06/21/2024 CBC WITH DIFFE RENTI AL/PL ATELE T MCHC 33.9 g/dL 31.5-3 5.7 normal Not Available [facility] ([facility]) [address] [facility], [place], [address], 06/21/2024 10:07:53 06/20/19 25 06/21/2024 CBC WITH DIFFE RENTI AL/PL ATELE T RDW 13.7 % 11.7-1 5.4 Not Available [facility] ([facility]) [address] [facility], [place], [address], 06/21/2024 10:07:53 06/20/19 25 06/21/2024 CBC WITH DIFFE RENTI AL/PL ATELE T platelets 157 x10e3 /uL 150-45 0 normal Not Available [facility] ([facility]) [address] [place], [address], 06/21/2024 10:07:53 06/20/19 25 06/21/2024 CBC WITH DIFFE RENTI AL/PL ATELE T neutrophils 49 % not estab. normal Not Available [facility] ([facility]) [address] [place], [address], 06/21/2024 10:07:53 06/20/19 25 06/21/2024 CBC WITH DIFFE RENTI AL/PL ATELE T lymphs 35 % not estab. normal Not Available [facility] ([facility]) [address] [place], [address], 06/21/2024 10:07:53 06/20/19 25 06/21/2024 CBC WITH DIFFE RENTI AL/PL ATELE T monocytes 11 % not estab. normal Not Available [facility] ([facility]) [address] [facility], [place], [address], 06/21/2024 10:07:53 06/20/19 25 06/21/2024 CBC WITH DIFFE RENTI AL/PL ATELE T eos 4 % not estab. normal Not Available [facility] ([facility]) [address] [facility], [place], [address], 06/21/2024 10:07:53 06/20/19 25 06/21/2024 CBC WITH DIFFE RENTI AL/PL ATELE T basos 1 % not estab. normal Not Available [facility] ([facility]) [address] [facility], [place], [address], 06/21/2024 10:07:53 06/20/19 25 06/21/2024 CBC WITH DIFFE RENTI AL/PL ATELE T immature cells RUG LAYER Not Available [facility]) [address] [place], [address], 06/21/2024 10:07:53 06/20/19 25 06/21/2024 CBC WITH DIFFE RENTI AL/PL ATELE T neutrophils (absolute) 2.6 x10e3 /uL 1.4-7. 0 normal Not Available [facility] ([facility]) [address] [place], [address], 06/21/2024 10:07:53 06/20/19 25 06/21/2024 CBC WITH DIFFE RENTI AL/PL ATELE T lymphs (absolute) 1.8 x10e3 /uL 0.7-3. 1 normal Not Available [facility] ([facility]) [address] [place], [address], 06/21/2024 10:07:53 06/20/19 25 06/21/2024 CBC WITH DIFFE RENTI AL/PL ATELE T monocytes(ab solute) 0.6 x10e3 /uL 0.1-0. 9 normal Not Available [facility] ([facility]) [address] [facility], [place], [address], 06/21/2024 10:07:53 06/20/19 25 06/21/2024 CBC WITH DIFFE RENTI AL/PL ATELE T eos (absolute) 0.2 x10e3 /uL 0.0-0. 4 normal Not Available [facility] ([facility]) [address] [facility], [place], [address], 06/21/2024 10:07:53 06/20/19 25 06/21/2024 CBC WITH DIFFE RENTI AL/PL ATELE T baso (absolute) 0.0 x10e3 /uL 0.0-0. 2 normal Not Available [facility] ([facility]) [address] [facility], [place], [address], 06/21/2024 10:07:53 06/20/19 25 06/21/2024 CBC WITH DIFFE RENTI AL/PL ATELE T immature granulocytes 0 % not estab. Not Available [facility] ([facility]) [address] [facility], [place], [address], 06/21/2024 10:07:53 06/20/19 25 06/21/2024 CBC WITH DIFFE RENTI AL/PL ATELE T immature grans (abs) 0.0 x10e3 /uL 0.0-0. 1 Not Available [facility] ([facility]) [address] [place], [address], 06/21/2024 10:07:53 06/20/19 25 06/21/2024 CBC WITH DIFFE RENTI AL/PL ATELE T NRBC RUG LAYER Not Available [facility] ([facility]) [address] [facility], [place], [address], 06/21/2024 10:07:53 06/20/19 25 06/21/2024 CBC WITH DIFFE RENTI AL/PL ATELE T hematology comments: RUG LAYER Not Available [facility] ([facility]) [address] [facility] [place], [address], 06/21/2024 10:07:53 06/20/19 25 06/21/2024 COMP. METAB OLIC PANEL (14) glucose 82 mg/dL 70-99 normal Not Available [facility] ([facility]) [address] [facility] [place], [address], 06/21/2024 10:07:53 06/20/19 25 06/21/2024 COMP. METAB OLIC PANEL (14) BUN 7 mg/dL 6-20 normal Not Available [facility] ([facility]) [address] [facility] [place], [address], 06/21/2024 10:07:53 06/20/19 25 06/21/2024 COMP. METAB OLIC PANEL (14) creatinine 0.47 mg/dL 0.57-1 .00 below low normal Not Available [facility] ([facility]) [address] [facility] [place], [address], 06/21/2024 10:07:53 06/20/19 25 06/21/2024 COMP. METAB OLIC PANEL (14) eGFR 126 mL/mi n/1.7 3 >59 normal Not Available [facility] ([facility]) [address] [place], [address], 06/21/2024 10:07:53 06/20/19 25 06/21/2024 COMP. METAB OLIC PANEL (14) BUN/creatini ne ratio 15 9-23 normal Not Available [facility] ([facility]) [address] [facility] [place], [address], 06/21/2024 10:07:53 06/20/19 25 06/21/2024 COMP. METAB OLIC PANEL (14) sodium 138 mmol/ L 134-14 4 normal Not Available [facility] ([facility]) [address] [place], [address], 06/21/2024 10:07:53 06/20/19 25 06/21/2024 COMP. METAB OLIC PANEL (14) potassium 3.8 mmol/ L 3.5-5. 2 normal Not Available [facility] ([facility]) [address] [facility] [place], [address], 06/21/2024 10:07:53 06/20/19 25 06/21/2024 COMP. METAB OLIC PANEL (14) chloride 104 mmol/ L 96-106 normal Not Available [facility] ([facility]) [address] [facility] [place], [address], 06/21/2024 10:07:53 06/20/19 25 06/21/2024 COMP. METAB OLIC PANEL (14) carbon dioxide, total 21 mmol/ L 20-29 normal Not Available [facility] ([facility]) [address] [facility] [place], [address], 06/21/2024 10:07:53 06/20/19 25 06/21/2024 COMP. METAB OLIC PANEL (14) calcium 9.4 mg/dL 8.7-10 .2 normal Not Available [facility] ([facility]) [address] [facility] [place], [address], 06/21/2024 10:07:53 06/20/19 25 06/21/2024 COMP. METAB OLIC PANEL (14) protein, total 7.7 g/dL 6.0-8. 5 normal Not Available [facility] ([facility]) [address] [facility] [place], [address], 06/21/2024 10:07:53 06/20/19 25 06/21/2024 COMP. METAB OLIC PANEL (14) albumin 4.1 g/dL 3.9-4. 9 normal Not Available [facility] ([facility]) [address] [facility] [place], [address], 06/21/2024 10:07:53 06/20/19 25 06/21/2024 COMP. METAB OLIC PANEL (14) globulin, total 3.6 g/dL 1.5-4. 5 Not Available [facility] ([facility]) [address] [facility] [place], [address], 06/21/2024 10:07:53 06/20/19 25 06/21/2024 COMP. METAB OLIC PANEL (14) bilirubin, total 1.2 mg/dL 0.0-1. 2 normal Not Available [facility] ([facility]) [address] [facility] [place], [address], 06/21/2024 10:07:53 06/20/19 25 06/21/2024 COMP. METAB OLIC PANEL (14) alkaline phosphatase 102 IU/L 44-121 normal Not Available [facility]) [address] [facility] [place], [address], 06/21/2024 10:07:53 06/20/19 25 06/21/2024 COMP. METAB OLIC PANEL (14) AST (SGOT) 38 IU/L 0-40 normal Not Available [facility] ([facility]) [address] [facility] [place], [address], 06/21/2024 10:07:53 06/20/19 25 06/21/2024 COMP. METAB OLIC PANEL (14) ALT (SGPT) 19 IU/L 0-32 normal Not Available [facility] ([facility]) [address] [facility] [place], [address], 06/21/2024 10:07:53 06/20/19 25 06/21/2024 LIPID PANEL cholesterol, total 152 mg/dL 100-19 9 normal Not Available [facility] ([facility]) [address] [facility] [place], [address], 06/21/2024 10:07:54 06/20/19 25 06/21/2024 LIPID PANEL triglyceride s 65 mg/dL 0-149 normal Not Available [facility]) [address] [place], [address], 06/21/2024 10:07:54 06/20/19 25 06/21/2024 LIPID PANEL HDL cholesterol 56 mg/dL >39 normal Not Available [facility]) [address] [place], [address], 06/21/2024 10:07:54 06/20/19 25 06/21/2024 LIPID PANEL VLDL cholesterol jennifer 13 mg/dL 5-40 Not Available [facility]) [address] [place], [address], 06/21/2024 10:07:54 06/20/19 25 06/21/2024 LIPID PANEL LDL chol calc ([facility]) 83 mg/dL 0-99 Not Available [facility]) [address] [place], [address], 06/21/2024 10:07:54 06/20/19 25 06/21/2024 LIPID PANEL LDL calc comment: RUG LAYER Not Available [facility] ([facility]) [address] [place], [address], 06/21/2024 10:07:54 06/20/19 25 06/21/2024 HEMOG LOBIN A1C hemoglobin A1C 5.7 % 4.8-5. 6 above high normal Predi abete s: 5.7 - 6.4 Diabe syl: >6.4 Glyce cornell contr ol for adult s with diabe syl: <7.0 Not Available [facility] ([facility]) [address] [place], [address], 06/21/2024 10:07:54 06/20/19 25 06/21/2024 D-DIM ER [...] old 0.80 mg/L FEU. Not Available [facility] ([facility]) [address] [facility], [place], [address], 06/21/2024 10:07:54 05/03/20 24 05/02/2024 liver elast ograp hy, mecha nical ly induc ed shear wave (PROC ) No observ ation record ed. [email or web address] [facility] [address], [place], [address], 05/03/2024 10:58:44 06/21/19 25 US, mihir x, main s, lower extre mity No observ ation record ed. [email or web address] - [address], [place], [address], 06/24/2024 10:02:08 06/24/19 XR, chest , 2 view No observ ation record ed. [address], [place], [address], 06/27/2024 14:15:07 02/25/2002/21/2025 US, echoc ardio gram, trans thora cic, compl ete No observ ation record ed. [address], [place], [address], 02/28/2025 08:55:15 02/27/2002/26/2025 stres s echoc ardio gram No observ ation record ed. [address], [place], [address], 03/03/2025 09:41:18 02/27/2002/26/2025 cardi ac stres s test No observ ation record ed. [address], [place], [address], 03/03/2025 09:40:48 Result Notes None recorded. Problems Name Problem SNOMED Code Status Onset Date Resolution Date Notes Provider Name and Address Organization Details Recorded Time Precordi al pain 85180066 Completed 201601/23/2017 Problem Code: R07.2; Problem Code Type: ICD-10; Not Available [facility] 2 20:54:27 Restless legs syndrome 37373364 Completed 201601/21/2019 Problem Code: G25.81; Problem Code Type: ICD-10; Not Available [facility] 20:54:25 Constipa tion 16041783 Completed 201601/21/2019 Not Available [facility] 20:54:26 [place] lesion of lung 424230296 Completed 201601/21/2019 Problem Code: R91.1; Problem Code Type: ICD-10; Not Available [facility] 2 20:54:27 Generali zed anxiety disorder 40291815 Completed 201601/21/2019 Problem Code: F41.1; Problem Code Type: ICD-10; Not Available [facility] 2 20:54:25 Restless legs syndrome 50608403 Completed 201601/21/2019 Problem Code: G25.81; Problem Code Type: ICD-10; Not Available [facility] 2 20:54:25 Constipa tion 22617251 Active 2016 Not Available [facility] 2 20:54:26 Slow transit constipa tion 03451925 Active 2016 Problem Code: 564.01; Problem Code Type: ICD-9; Not Available [facility] 2 20:54:30 Candidal otitis externa 10131412 Completed 201708/12/2017 Problem Code: B37.84; Problem Code Type: ICD-10; Not Available [facility] 2 20:54:25 Acute suppurat esvin otitis media 895938329 Completed 201708/12/2017 Not Available [facility] 2 20:54:25 Acute suppurat esvin otitis media without spontane ous rupture of ear drum 28304343 Completed 201708/12/2017 Problem Code: 382.00; Problem Code Type: ICD-9; Not Available [facility] 2 20:54:30 Knee pain Completed 201709/28/2017 Not Available [facility] 2 20:54:26 Injury involvin g multiple body regions 167469317 Completed 201701/21/2019 Not Available [facility] 2 20:54:27 Nonvenom ous insect bite of multiple sites 366213398 Active 2017 Problem Code: 919.4; Problem Code Type: ICD-9; Not Available [facility] 2 20:54:31 Acute cystitis 33558512 Completed 201702/13/2018 Problem Code: N30.00; Problem Code Type: ICD-10; Not Available [facility] 2 20:54:26 Acquired hallux malleus 43253272 Active 2018 Problem Code: M20.40; Problem Code Type: ICD-10; Not Available [facility] 2 20:54:26 Hepatiti s C carrier 531285286 Active 2019 Problem Code: B18.2; Problem Code Type: ICD-10; Not Available [facility] 2 20:54:25 Abnormal weight gain 896697753 Completed 201904/24/2020 Problem Code: R63.5; Problem Code Type: ICD-10; Not Available [facility] 2 20:54:27 Finding of general energy 164792776 Completed 201909/15/2020 Problem Code: R53.83; Problem Code Type: ICD-10; Not Available [facility] 2 20:54:27 General examinat ion of patient Active 2019 Not Available [facility] 2 20:54:28 Viral screenin g Active 2019 Problem Code: Z11.59; Problem Code Type: ICD-10; Not Available [facility] 2 20:54:28 Influenz a vaccine needed 15897038818 06 Completed 201904/24/2020 Problem Code: Z23; Problem Code Type: ICD-10; Not Available [facility] 2 20:54:29 Body mass index 30+ - obesity 276358784 Completed 201904/24/2020 Problem Code: Z68.34; Problem Code Type: ICD-10; Not Available [facility] 2 20:54:29 Sampling of vagina for Papanico laou smear Completed 201904/24/2020 Problem Code: Z01.419; Problem Code Type: ICD-10; Not Available [facility] 2 20:54:28 Acute hepatiti s C 144055806 Active 2019 Problem Code: B17.10; Problem Code Type: ICD-10; Not Available [facility] 2 20:54:25 Neck pain 64301120 Completed 201909/15/2020 Not Available [facility] 2 20:54:26 Spasm 92354077 Completed 201909/15/2020 Problem Code: M62.838; Problem Code Type: ICD-10; Not Available [facility] 2 20:54:26 Acute suppurat esvin otitis media 484677780 Active 2020 Not Available [facility] 2 20:54:25 Obstruct ion of [place] an tube 21410094 Active 2020 Not Available [facility] 2 20:54:25 Upper abdomina l pain 19802381 Active 2020 Not Available [facility] 2 20:54:27 Tobacco dependen ce caused by cigarett es 94840451435 600544 Active 2020 Problem Code: F17.210; Problem Code Type: ICD-10; Not Available [facility] 2 20:54:25 Body mass index 30+ - obesity 126791826 Active 2020 Problem Code: Z68.30; Problem Code Type: ICD-10; Not Available [facility] 2 20:54:29 Epigastr ic hernia 764694296 Active 2020 Problem Code: K43.9; Problem Code Type: ICD-10; Not Available [facility] 2 20:54:26 Acute otitis media 2388409 Active [address], [address] [place] [facility] [facility] 3 17:42:58 Dyspnea 922576531 Active 2024 Joanna hsu [employer] 5 09:45:38 Notes:*Problem Name: Left up per quadrant abdominal swelling, mass and lump *Problem Status: Chronic *Comments: *Problem Code: R19.02 *Problem Code Type: ICD-10 *Note Date: 01/26/2021 Problem Notes None recorded. Procedures Surgical History Date Name Laterality Status Provider Name and Address Organization Details Recorded Time 03/24/20 20 ligation of bilateral fallopian tubes completed Not Available [facility] 01/18/2022 22:56:17 section completed [facility] [employer] 09/01/2022 17:33:18 tonsilectomy/ad enoids completed [facility] [employer] 09/01/2022 17:33:32 Knee Replacement completed [facility] [employer] 09/01/2022 17:33:43 Imaging Results None recorded. Procedure Notes None recorded. Medical Equipment None Reported. Allergies Allergen ID Allergen Name Allergen Category Reaction Reaction Severity Criticality Documentation Date Start Date Code Code System Note Provider Name and Address Organization Details Recorded Time 22194 Product containin g penicilli n (product) medicatio n Not available Not available Not available 09/01/2022 29842 8001 SNOMED [facility] [employer] [facility] 17:29:02 Medications Name Sig Start Date Stop [...] Available Not Available Not Available Afluria Qd 2019- (36 mos up)(PF)60 mcg (15 mcg x4)/0.5 [...] Updated DateTime 5 167.64 cm 34.1 kg/m2 92730.9 9 g 85 /min 94 % 94 % 129/77 mm[Hg] Joanna Smith [employer] 5 15:52:50 Date Recorded Body weight Body mass index (BMI) Body height Heart rate Oxygen saturation Oxygen saturation in Arterial blood by Pulse oximetry Systolic And Diastolic Provider Name and Address Organization Details Last Updated DateTime 3 573936. 28 g 36.3 kg/m2 167.64 cm 77 /min 99 % 99 % 129/85 mm[Hg] MAREK BENNETT [employer] 3 17:34:58 Date Recorded Body height Body mass index (BMI) Body weight Heart rate Oxygen saturation Oxygen saturation in Arterial blood by Pulse oximetry Systolic And Diastolic Provider Name and Address Organization Details Last Updated DateTime 5 167.64 cm 33.6 kg/m2 11631.2 1 g 82 /min 97 % 97 % 127/83 mm[Hg] Joanna Smtih [employer] 5 13:18:57 Date Recorded Body height Body mass index (BMI) Body weight Heart rate Oxygen saturation Oxygen saturation in Arterial blood by Pulse oximetry Systolic And Diastolic Provider Name and Address Organization Details Last Updated DateTime 5 167.64 cm 33.4 kg/m2 57822.6 2 g 85 /min 94 % 94 % 129/75 mm[Hg] Joanna [place] [employer] 5 16:08:04 Social History Question Answer Notes LastModified by Organizat ion Details LastModified Time Tobacco Smoking Status Current Every Day Smoker MAREK hsu [employer] 09/01/2022 17:31:16 Do You Have An Advance Directive? No [email or web address] Information not available 09/01/2022 Is Your Home Air Conditioned? Yes [email or web address] Information not available 09/01/2022 Are You A Caregiver? No [email or web address] Information not available 09/01/2022 Have You Been To An Area Known To Be High Risk For COVID-19? No [email or web address] Information not available 09/01/2022 Have There Been Any Changes To Your Family Or Social Situation? No [email or web address] Information no t available 09/01/2022 Do You Have A Medical Power Of Correction Warden? No [email or web address] Information not available 09/01/2022 What Was The Date Of Your Most Recent Tobacco Screening? 11/22/2024 [email or web address] Information not available 11/22/2024 What Is Your Current Pack Years? 10packyears [email or web address] Information not available 09/01/2022 What Is Your Relationship Status? Domestic Partner [email or web address] Information not available 09/01/2022 Do You Use Your Seat Belt Or Car Seat Routinely? Yes [email or web address] Information not available 09/01/2022 Do You Have Smoke And Carbon Monoxide Detectors In Your Home? Yes Information not available 09/01/2022 Are You Passively Exposed To Smoke? Yes [email or web address] Information no t available 09/01/2022 Are There Any Smokers In Your House? Yes [email or web address] Information not available 09/01/2022 How Much Tobacco Do You Smoke? 0.25 PPD [email or web address] Information not available 09/01/2022 How Many Years Have You Smoked Tobacco? 5 [email or web address] Information not available 09/01/2022 Have You Recently Traveled Abroad? No [email or web address] Information not available 09/01/2022 Are You Currently In School? No Information not available 09/01/2022 Sex: Female Functional Status Question Answer Note LastModified by Organizat ion Details LastModified Time Do you use any illicit or recreational drugs? No Prior use of opiates Information not available 09/01/2022 Do you or have you ever used any other forms of tobacco or nicotine? Yes [email or web address] Information not available 09/01/2022 What is your level of alcohol consumption? None Information not available 09/01/2022 Do you or have you ever used smokeless tobacco? Never used smokeless tobacco [email or web address] Information not available 09/01/2022 Are you currently employed? No [email or web address] Information not available 09/01/2022 Do you or have you ever used e-cigarettes or vape? Current user of electronic cigarettes [email or web address] Information not available 09/01/2022 Mental Status None recorded. Family History Relationship Description Onset Age of this Age Resolved Age Notes LastModified by Organization Details LastModified Time Mother Family history of Hypertension [email or web address] Not available 09/01/2022 17:30:23 Sister Family history of drug abuse [id number] Not available 17:30:38 Sister Family history of alcoholism [email or web address] Not available 17:30:47 Father Family history of diabetes mellitus type 2 [email or web address] Not available 17:31:00 Paternal Grandmother Family history of diabetes mellitus type 2 [id number] Not available 17:31:02 Paternal Grandfather Family history of diabetes mellitus type 2 [email or web address] Not available 17:31:05 Medical History Condition Response Hepatitis Y COPD Y Gynecological History Statement/Question Response Date of Last Pap Smear Most Recent Mammogram Obstetrics History GPAL:G 0 P 0 0 0 0 Immunizations Vaccine Type Date Status Note Provider Nam e and Address Organization Details Recorded Time Influenza, split virus, quadrivalent, preservative 8 completed Not Available [facility] 01/18/2022 23:36:48 Hep B, adult 5 completed Joanna hsu, [employer]. 10/24/2024 14:21:42 Hep B, adult 5 completed Joanna hsu, [employer], [place]. 11/22/2024 16:45:18 Hep A, adult 5 completed Joanna hsu, [employer] 11/22/2024 16:45:18 MMR 0 completed Not Available [facility] 11/22/2024 15:37:04 Hep B, adolescent or pediatric 0 completed Not Available [facility] 11/22/2024 15:37:04 Td (adult), 2 Lf tetanus toxoid, preservative free, adsorbed 4 completed Not Available [facility] 11/22/2024 15:37:04 Hep B, adolescent or pediatric 4 completed Not Available [facility] 11/22/2024 15:37:04 Novel [id number] , all formulations 9 completed Not Available [facility] 11/22/2024 15:37:04 Influenza, split virus, trivalent, preservative 0 completed Not Available [facility] 11/22/2024 15:37:04 COVID-19, mRNA, LNP-S, PF, 100 mcg/0.5mL dose or 50 mcg/0.25mL dose 1 completed Not Available [facility] 11/22/2024 15:37:04 Past Encounters Encounter ID Performer Location Encounter Start Date Encounter Closed Date Diagnosis/Indication Diagnosis SNOMED-CT Code Diagnosis ICD10 Code Diagnosis IMO Codes Diagnosis Note [id number] KEKE NOBLES, [facility] [address] 0 09/01/2022 17:25:10 09/01/2022 17:52:34 Acute otitis media 9040419 H66.91 [id number] Jany Wong [place] [address] 06/20/2024 14:44:16 06/20/2024 15:47:46 Fatigue 68186343 R53.83 Hyperlipidemia 91551683 E78.5 Pain in ri ght lower limb 905469424 M79.604 Hyperglycemia 54417856 R 73.9 Body mass index 30+ - obesity 960125269 Z68.34 [id number] Jany Wong [place] [address] 10/24/2024 12:59:13 10/24/2024 14:07:28 Active immunization 77054530 Z23 19878369 Body mass index 30+ - obesity 022664204 Z68.33 602267 [id number] Jany Wong [place] [address] 0 11/22/2024 15:36:42 11/22/2024 16:35:34 Vaccination needed 9757101907 49318 Z23 359237 1st Hep B - 10/24/24; dose 2 today; f/u 6 months for final dose in the series.dos e 1 of Hep A today; follow up in 6 months for final dose in the series. Acute constipation 9006 K59.00 137970 Body mass index 30+ - obesity 821434714 Z68.33 706965 Health Concerns Section Related Observation LastModified by Organization Detai ls LastModified Time None Recorded Concern Status LastModified by Organization Details LastModified Time None Recorded Advance Directives Directive N: Payers Insurance Date Sequence Insurance Name Policy Number Policy Fontenot Covered Member ID Fontenot Member ID Guarantor Name 09/01/2022 1 *SELF PAY* Po Primo Victor 01/14/2025 1 [facility] (MEDICAID HMO) Aminata Victor [id number] Corey Victor 08/01/2024 1 UNSPECIFIED REMIT PAYOR Rohanan Kayleigh Notes Date Note Type Note Provider Name and Address Organization Details Recorded Time 09/01/2022 text/html ROS as noted in the HPI Ear pain for three days. Right > Left. Mild sore throat. No cough. Patient has no history of seasonal allergies. KEKE KASSANDRA NOBLES- [address] [place], [address], [facility] [id number], [place]. 09/01/2022 17:56:12 06/20/2024 text/html 38 year old [...] Pt agrees with plan Jany Wong APRN [address] [place], [address], [facility] [employer] 06/20/2024 16:03:47 10/24/2024 text/html pt here today [...] given appts to come back for boosters. Jnay Wong APRN [address] [place], [address], [place] [employer], [place]. 10/24/2024 15:49:43 11/22/2024 text/html pt here today for 2nd round of vaccines. pt states that she is doing well. states that her suboxone doc does not want her to have the adipex for wt loss. also states that her liver doc prescribed her linzess and it is working but she cannot go to [place] and [place] all the time. i will prescribe for pt. Jany Wong APRN [address] [facility], [place], [address], [employer] 11/22/2024 18:30:28 OBGyn Episode No OBEpisode recorded.
[2025-03-19 12:34] VITALS: BMI 33.6
[2025-03-19 12:39] VITALS: BP 148/77; PULSE 62; RESP 16; TEMP 36.3; O2SAT 95
[2025-03-19] MEDS: METOPROLOL TARTRATE 50MG TABLET PO (12:55)
[2025-03-19] MEDS: IVABRADINE HCL 7.5MG TABLET PO (12:56)
--- NOTE | 2025-03-19 13:00 | CT_ITS ---
APPROVED REPORT Plastic Worker: CLINICAL INDICATION Chest Pain TECHNIQUE Image Acquisition: A 128 slice MDCT scanner ([employer] View) was used for data acquisition. A noncontrast coronary calcium scan was performed. A CT attenuation threshold of 130 Hounsfield units (HU) was used for the detection of calcium in contiguous voxels of 1 sq mm in area to be counted as individual lesions. Bolus tracking in the ascending aorta with a threshold of 180 HU was performed. Immediately afterwards, ECG synchronized cardiac CT was then performed from the cardiac base to apex using retrospective gating with ECG tube current modulation. A total of 85 mL of Isovue 370 mg/mL contrast medium was administered at 5 mL/sec followed by a saline flush using a biphasic injection protocol. A tube voltage of 120 KVp was used. The patient received the following medications prior to the cardiac CT. 75 mg of oral metoprolol 15 mg of oral ivabradine 0.4 mg of sublingual nitroglycerin The average heart rate at the time of acquisition was 54 bpm and regular. Image Reconstruction Transaxial images were reconstructed at 0.67 mm slide thickness. Data was reviewed interactively on an advanced workstation capable of 2 and 3-dimensional displays in all conventional reconstruction formats, including multiplanar reformations, maximum intensity projections, curved multiplanar reformations, and volume rendered reconstructions. When applicable, selected routine images describing the relevant coronary anatomy and pathology were saved and sent to PACS. Complications None Technical Quality Overall image quality was good. Coronary artery opacification was adequate. Total DLP (Dose-Length Product) is 1267.5 mGy-cm. The reported value represents the total of one or more individual components during the CT acquisition of this date and at this time, and as such, the same value may appear in more than one CT report depending on the interpreting/reporting physicians. COMPARISON None FINDINGS CT Coronary Calcium Scoring LMA (Left Main Artery) = 0 LAD (Left Anterior Descending) = 0 LCX (Left Coronary Circumflex) = 0 RCA (Right Coronary Artery) = 0 Total Calcium Score = 0 using the AJ-130 method. The interpretation of the calcium heart score is based on the following continuum*: 0 = no calcified plaque detected (risk of coronary artery disease is very low ??? less than 5%) 1-10 = calcium detected in extremely minimal levels (risk of coronary diseases is still low ??? less than 10%) 11-100 = mild levels of plaque detected with certainty (mild or minimal narrowing of heart arteries is likely) 101-400 = definite,at least moderate levels of plaque detected (relatively high risk of a heart attack within 3-5 years) >401-999 = extensive levels of plaque detected (high risk of heart attack, high levels of vascular disease are present, high likelihood of at least one significant coronary narrowing) *The calcium heart score quantifies the burden of coronary calcification/plaque in the coronary arteries. The calcium heart score is not able to evaluate the presence or burden of non-calcified (i.e. soft) plaque. There is no identifiable calcification in the aortic valve, mitral annulus or mitral valve, pericardium, or myocardium. Coronary CT Angiography The coronary arterial system is right dominant. Quantitative Stenosis Grading: Left Main (LM): The left main originates normally from the left sinus of Valsalva. The LM bifurcates into the left anterior descending artery and left circumflex artery. The LM is patent with no evidence of atherosclerosis. Left Anterior Descending (LAD) and Diagonal Branches: The LAD gives off 3 diagonal branch(es). The LAD and its branches are patent with no evidence of atherosclerosis. There is no evidence of LAD-myocardial bridge. Left Circumflex (LCX) and Obtuse Marginals (OM): The LCX gives off 1 Obtuse Marginal (OM) branch(es). The LCX and its branches are patent with no evidence of atherosclerosis. Right Coronary Artery (RCA): The RCA originates normally from the right sinus of Valsalva. The RCA gives off a posterior descending artery (PDA) and posterolateral (PL) branches. The RCA and its branches are patent with no evidence of atherosclerosis. Non-Coronary Cardiac Findings: Analysis of the left ventricular (LV) structure and function was performed after 3-D reconstruction of the LV from axial images, with user-corrected automatic contouring for assessment of LV volumes and user-defined reconstruction from oblique planes for measurement of 3-D cardiac structure and function. -The left ventricle systolic function is normal. -There is no left atrial appendage filling defect. Two right pulmonary veins and two left pulmonary veins drain normally into the left atrium. -No pericardial thickening or calcification. -Central and branch pulmonary arteries in the [id number] are unremarkable. -Thoracic aorta within the visualized thoracic aortic-branches in the [id number] is unremarkable. Extracardiac Structures No significant extra-cardiac findings. Note, however, that this study is focused on the cardiac findings. IMPRESSION -Absence of coronary calcification with an Agatston score = 0 using the AJ-130 method. -No evidence of significant flow-limiting atherosclerosis of the coronary arteries. -CAD-RADS 0. Management recommendations per ACC/AHA guidelines*, as clinically appropriate. *Recommendations: CAD RADS 0: Reassurance. Consider non-atherosclerotic causes of chest pain. CAD RADS 1: Consider non-atherosclerotic causes of chest pain. Consider preventive therapy and risk factor modification. CAD RADS 2: Consider non-atherosclerotic causes of chest pain. Consider preventive therapy and risk factor modification, particularly for patients with nonobstructive plaque in multiple segments. CAD RADS 3: Consider further functional testing. Consider symptom-guided anti-ischemic and preventive pharmacotherapy as well as risk factor modification per published guideline statements. CAD RADS 4A: Consider further functional testing or invasive coronary angiography with revascularization per published guideline statements. Consider symptom-guided anti-ischemic and preventive pharmacotherapy as well as risk factor modification per published guideline statements. CAD RADS 4B: Invasive coronary angiography recommended with revascularization per published guideline statements. Consider symptom-guided anti-ischemic and preventive pharmacotherapy as well as risk factor modification per published guideline statements. CAD RADS 5: Consider invasive angiography and/or viability assessment with revascularization per published guideline statements. Consider symptom-guided anti-ischemic and preventive pharmacotherapy as well as risk factor modification per published guideline statements. CRITICAL RESULT None COMMUNICATION Per this written report The coronary and cardiac findings of this CCTA were reviewed, reported, and signed by Ino Soliman MD ([employer]) Conclusion Electronically signed by : Autumn Soliman MD 03/24/2025 13:21:45
[2025-03-19 13:10] LABS: Anion Gap 11.9 mEq/L (5-15); Blood Urea Nitrogen 9 mg/dl (7-17); Calcium 9.0 mg/dl (8.4-10.2); Carbon Dioxide 26 mmol/L (22.0-30.0); Chloride 102 mmol/L (98-107); Creatinine Clearance Estimated 296 mL/min (50-200); Creatinine,Serum 0.40 mg/dl (0.52-1.04); Estimated Glomerular Filt Rate 180 ml/min (>60); GFR (African American) 217 ML/MIN (>60); Glucose 97 mg/dl (74-100); Potassium 3.9 mmoL/L (3.5-5.1); Sodium 136 mmol/L (136-145)
[2025-03-19 13:13] LABS: Urine Pregnancy, HCG Qual. Negative (Negative)
[2025-03-19] MEDS: IOPAMIDOL-370 (76%);100ML BOTTLE 85 ML IV (13:34)
[2025-03-19] MEDS: 0.9 % SODIUM CHLORIDE 50 ML VIAL IV (13:34)
[2025-03-19] MEDS: SODIUM CHLORIDE 0.9% 10ML SYR (RAD ONLY) 10 ML IV (13:34)
[2025-03-19] MEDS: NITROGLYCERIN 0.4MG SL TABLET SL (13:40)
== END 2025-03-19 13:56 | disposition home or self-care (01) ==
PROVIDERS: PCP Nurse Practitioner Family; Visit Provider Physician Assistant
DX: R07.9 Chest pain, unspecified (principal); R40.0 Somnolence; R00.2 Palpitations; R94.39 Abnormal result of other cardiovascular function study; G47.8 Other sleep disorders
CPT/HCPCS: 75574; 80048; 81025; Q9967

== ENCOUNTER 2025-03-31 16:37 | Emergency (ER) | payer MEDICAID, SELFPAY ==
[2025-03-31 17:40] VITALS: BP 154/75; PULSE 65; RESP 18; TEMP 36.9; O2SAT 97; BMI 35.5
--- NOTE | 2025-03-31 19:16 | XR_ITS ---
PROCEDURE INFORMATION: Exam: XR Right Hand Exam date and time: 03/31/2025 7:20 PM Age: 39 years old Clinical indication: Injury or trauma; Other: Cut hand on knife; Bleeding/hemorrhage; Right index finger; Injury date: 03/31/25; Additional info: Right hand pain TECHNIQUE: Imaging protocol: Radiologic exam of the right hand. Views: 3 or more views. Total images: 3 COMPARISON: No relevant prior studies available. FINDINGS: Bones/joints: No acute fracture or joint dislocation. No concerning bone lesions. Unremarkable joint spaces. Soft tissues: Soft tissue swelling and laceration index finger. No radiopaque foreign body. Notes: Limited by gauze material. IMPRESSION: Soft tissue swelling and laceration index finger. No radiopaque foreign body.
--- NOTE | 2025-03-31 19:17 | ED_ITS ---
Discharge Plan Disposition Patient Disposition: Home, Self-Care Condition: Good Prescriptions Prescriptions: New sulfamethoxazole-trimethoprim [Bactrim DS] 800-160 mg tablet 1 tab PO Q12H 7 Days Qty: 14 0RF No Action buprenorphine-naloxone 8-2 mg tablet, sublingual 1 tab sublingual DAILY Patient Comments: PLACE 1/2 TABLET UNDER THE TONGUE AND ALLOW TO DISSOLVE 1 TIME EACH DAY. pantoprazole 40 mg tablet,delayed release (DR/EC) 40 mg PO DAILY Qty: 30 2RF aspirin 81 mg tablet 81 mg PO DAILY Linzess 145 mcg capsule 145 mcg PO DAILY Qty: 90 3RF Referrals Follow up/Referrals: Laura López [Primary Care Provider, Medical] - See instructions Activity Restrictions/Add. Instructions Additional Instructions/Restrictions: The antibiotic as prescribed for 7 days. Clean the wound with soap and water. Keep the wound covered as much as possible to prevent infection. Return to the emergency department for any signs of pus, severe swelling of the finger, severe redness or acute uncontrolled pain. You can take Tylenol Motrin as needed for pain control. Clinical Impressions Clinical Impression: Laceration Instructions Patient Instructions: DI for Laceration Repair Print Language Print Language: Panamanian Discharge ED Provider: Carleen Palmer General Adult HPI General Chief complaint: Wound/Laceration Stated complaint: Cut on right finger Time Seen by Provider: 03/31/25 18:57 Mode of Arrival: Ambulatory Source of Information: Patient Description of Symptoms (Recalled from ER Triage Doc. by RN): pt presents to the ED with a laceration to her right thumb and 2nd digit. pt reports last night she was washing knives when the knife cut her right thumb and 2nd digit. Denies blood thinners. Unknown last tetanus shot. History of Present Illness HPI narrative: Patient is a 39-year-old female with no significant past medical history who presents to the emergency department with an injury to her right index finger and thumb that occurred last night. Patient states that she was washing the knives when it cut her fingers. Patient states that she did not wash them last night. Patient is unsure when her last tetanus shot was. Patient states that she is not on any blood thinners. Patient denies any prior diabetes. Related Data Home Medications ?Medication ?Instructions ?Recorded ?Confirmed buprenorphine 8 mg-naloxone 2 mg 1 tab sublingual RADHA Y 02/04/25 03/19/25 sublingual tablet aspirin 81 mg tablet 81 mg PO DAILY 03/06/25 1110/06 Previous Rx's ?Medication ?Instructions ?Recorded linaclotide 145 mcg capsule 145 mcg PO DAILY #90 caps 10/14/24 (Linzess) pantoprazole 40 mg tablet,delayed 40 mg PO DAILY #30 t abs 02/04/25 release sulfamethoxazole 800 1 tab PO Q12H 7 days #14 tab s 03/31/25 mg-trimethoprim 160 mg tablet (Bactrim DS) Allergies Allergy/AdvReac Type Severity Reaction Status Date / Time Penicillins Allergy Unknown Verified 03/19/25 12:38 [facility] Dis[facility]: The information contained in this section may have been updated after the patient was seen, as this information can be updated by other users. Medical History Elevated liver enzymes Hep C w/o coma, chronic Surgical History H/O hernia repair H/O adenoidectomy Hx of tonsillectomy H/O knee surgery Social History (Updated 03/19/25 @ 13:07 by Sherlyn Heath RN) Smoking Status: Current every day smoker tobacco type: cigarettes packs per day: 1 and smokeless tobacco second hand exposure: No alcohol intake: never substance use type: former substance user and opiates current occupational status: unemployed Travel in the last 8 weeks?: None household members: significant other and children housing: house current occupational exposures/hazards: No Have you lived/traveled outside [place] in past 30 days?: No Contact w/someone who lives/traveled outside US past 30 days?: No Exposure to someone with infectious disease in past 14 days?: No Do you have a fever (greater than 100.4 F or 38 C)?: No Have you tested positive for COVID-19?: No Exposed to someone with COVID-19 in past 14 days?: No Do you have a sore throat?: No Do you have a cough?: No Do you have any weakness?: No Do you have any diarrhea?: No Are you experiencing any unusual bleeding?: No Do you have any muscle aches/pain?: No Do you have any abdominal pain?: No Are you experiencing loss of taste or smell?: No Other Medical History Have you received the Flu Vaccine for this season: No Have you received the Pneumonia Vaccine: No ROS Obtained: Yes All systems reviewed & no additional complaints except as documented and Yes Systems reviewed as appropriate & no additional complaints except as documented Physical Exam General General appearance: alert and in no apparent distress Head Head exam: atraumatic, normocephalic and normal inspection Eye Eye exam: Present normal appearance, PERRL and EOMI; Absent scleral icterus ENT ENT exam: Present normal exam and normal external ear exam Neck Neck exam: Present normal inspection and full ROM Chest Chest inspection: Present normal inspection and symmetric chest wall rise Respiratory Respiratory exam: Present normal lung sounds bilaterally; Absent respiratory distress or wheezes Cardiovascular Cardiovascular exam: Present regular rate, normal rhythm and normal heart sounds Abdominal Exam Abdominal exam: Present soft and distention; Absent tenderness, guarding or rebound Extremities Exam Extremities exam: Present normal inspection, full ROM and other (R hand with a 1cm laceration to the right thumb just distal to the thumb that has closed by secondary intention, R index finger with a 1 cm laceration to the dorsal aspect, superfical very mild bleeding, FROM of the digits, no swelling, NVI and 2+ radial pulse) Back Exam Back exam: Present normal inspection and full ROM Neurological Exam Neurological exam: Present alert and oriented X3 Psychiatric Psychiatric exam: Present normal affect and normal mood Skin Skin exam: Present warm and dry Medical Decision Making Medical Records Medical records reviewed: Yes I reviewed the patient's medical records. Screening: Per USPSTF and CDC recommendations, given the prevalence of disease in our region, it is our hospital?s policy to screen for HIV and viral Hepatitis for all patients aged 18 and over and those with ongoing risk factors. [place] Inquiry Pt receiving controlled substance: No Vital Signs: 03/31/25 17:40 03/31/25 20:38 Temperature 98.5 F 98.3 F Temperature Source Oral Oral Pulse Rate 85 Pulse Rate [Right] 65 Respiratory Rate 18 18 Blood Pressure 137/82 Blood Pressure [Right Arm] 154/75 H Blood Pressure Mean [Right Arm] 101 Blood Pressure Source [Right Arm] Automatic Cuff Blood Pressure Position [Right Arm] Supine 02 Sat by Pulse Oximetry 97 Oxygen Delivery Method Room Air Room Air Lab Data Lab results reviewed: Yes I reviewed the patient's lab results. Orders (Tests/Meds): ED MEDICATIONS Discontinued Medications Generic Name Dose Route Start Last Admin Trade Name Carissa PRN Reason Stop Dose Admin Cocaine HCl 1 ml 03/31/25 19:16 03/31/25 19:36 Cocaine 4% Topical Soln 4ml Bottle TP 03/31/25 19:17 1 ml ONCE ONE Administration Epinephrine HCl 1 mg 03/31/25 19:16 03/31/25 19:36 Epinephrine 1 Mg/Ml Ampul TP 03/31/25 19:17 1 mg ONCE ONE Administration Lidocaine HCl 1 ml 03/31/25 19:16 03/31/25 19:36 Lidocaine 2% Urojet 10ml TP 03/31/25 19:17 1 ml ONCE ONE Administration Tetanus/Reduced Diphtheria/Acell Pertussis 0.5 ml 03/31/25 19:16 03/31/25 19:38 Tet/Diphth/Pert-Adult 0.5ml Syringe IM 03/31/25 19:17 0.5 ml .ONCE ONE Administration Trimethoprim/Sulfamethoxazole 1 each 03/31/25 19:53 03/31/25 19:58 Sulfa/Trimethoprim 1 Tablet PO 03/31/25 19:54 1 each ONCE ONE Administration ORDERS Category Date Time Status Hand XR right minimum 3 views [XR hand RT min 3V] Stat Exams 03/31/25 19:16 Completed Medical Decision Narrative: Patient is a 39-year-old female with no significant past medical history who presents to the emergency department with a laceration to her right thumb and right index finger after cutting it on clean knives last night. On arrival, patient was hemodynamically stable with unremarkable vital signs. Differential includes but not limited to: Laceration, vascular injury, nerve injury, fracture, amongst others. Patient's laceration to the right thumb had already closed by secondary intention. Patient's laceration to her right index finger was very superficial. X-ray was obtained which showed no acute fracture or other acute bony pathology. Given that patient's laceration was more than 24 hours old very superficial, I chose to not close it. Patient's wound was cleaned extensively, it was placed and it was covered with a dressing. Patient was advised to keep a dressing on the wound until it heals. Patient was advised to clean the wound with soap and water. Return precautions were discussed and patient was otherwise discharged home in stable condition. Was sent with antibiotics and patient's tetanus was updated. Critical Care Critical Care Time Critical Care Time: No
[2025-03-31] MEDS: COCAINE 4% TOPICAL SOLN 4ML BOTTLE 1 ML TP (19:36)
[2025-03-31] MEDS: LIDOCAINE 2% UROJET 10ML TP (19:36)
[2025-03-31] MEDS: TET/DIPHTH/PERT-ADULT 0.5ML SYRINGE 0.5 ML IM (19:38)
[2025-03-31] MEDS: SULFA/TRIMETHOPRIM 1 TABLET 1 EACH PO (19:58)
--- NOTE | 2025-03-31 20:20 | PC.NURSE ---
Attempted to clean lac, pt states numbing has wore off, covered with warm soap / water gauze to loosen blood and debris.
[2025-03-31 20:38] VITALS: BP 137/82; PULSE 85; RESP 18; TEMP 36.8; O2SAT 97
--- OUTSIDE RECORDS SUMMARY | 2025-04-01 00:15 | XMS_ITS | Data Portability ---
Author Organization [facility] [employer] [facility] Address [address] [place] [address] Assessment Encounter Date Assessment Date Assessment LastModified by Organization Details LastModified Time 09/01/2022 09/01/2022 Patient with symptoms of acute OM of the right ear. Will treat as noted below. Advised to return if symptoms do not resolve or worsen over the next week. [email or web address] Not available 09/01/2022 17:47:52 Plan of Treatment Reminders Order Date Submit Date Provider Last Modified By Organization Details Last Modified Time Details Appointments FOLLOW UP 15 2024 01:45P Saurabh Wong APRN Not available Not available Not available Lab HbA1c (hemoglob in A1c), blood 2024 025 [employer]), [address] [place], [address], 06/21/2024 10:07:54 D-dimer, quant, plasma 2024 025 [facility] [address] [place] [address], [address], 06/21/2024 10:07:54 lipid panel, serum 2024 025 [place] [facility], [address] [place], [address], 06/21/2024 10:07:54 CBC w/ auto diff 2024 025 [facility] [place], [address], 06/21/2024 10:07:53 CMP, serum or plasma 2024 025 [place]), [address] [place], [address], 06/21/2024 10:07:53 TSH + free T4, serum 2024 025 [place] [facility]), [address] [place], [address], 06/21/2024 10:07:52 Referral None recorded. Procedures None recorded. Surgeries None recorded. Imaging US, duplex, venous, lower extremity - STAT [address], [address] [facility], [place], [address], 06/21/2024 10:46:42 Medication Orders Linzess 145 mcg capsule 2024 025 [facility], [address] [place] [address], [address], 11/27/2024 18:09:42 cephalexi n 500 mg capsule [address], [address] [place] [address], [address], 10/24/2024 13:19:52 Patient TargetsNo targets recorded. Patient InstructionsNo instructions recorded. Reason for Referral None Reported. Results Created Date Observation Date Name Description Value Unit Range Abnormal Flag Note LastModifiedBy Organization Detail LastModifiedTime 06/20/1906/21/2024 TSH+F REE T4 TSH 1.800 uIU/m L 0.450- 4.500 normal Not Available [facility] ([facility]) [address] [facility], [place], [address], 06/21/2024 10:07:52 06/20/19 25 06/21/2024 TSH+F REE T4 T4,free(dire ct) 0.75 NG/dL 0.82-1 .77 below low normal Not Available [facility] ([facility]) [address] [place], [address], 06/21/2024 10:07:52 06/20/19 25 06/21/2024 CBC WITH DIFFE RENTI AL/PL ATELE T WBC 5.2 x10e3 /uL 3.4-10 .8 normal Not Available [facility] ([facility]) [address] [place], [address], 06/21/2024 10:07:53 06/20/19 25 06/21/2024 CBC WITH DIFFE RENTI AL/PL ATELE T RBC 3.79 x10e6 /uL 3.77-5 .28 normal Not Available [facility] ([facility]) [address] [place], [address], 06/21/2024 10:07:53 06/20/19 25 06/21/2024 CBC WITH DIFFE RENTI AL/PL ATELE T hemoglobin 12.3 g/dL 11.1-1 5.9 normal Not Available [facility] ([facility]) [address] [place], [address], 06/21/2024 10:07:53 06/20/19 25 06/21/2024 CBC WITH DIFFE RENTI AL/PL ATELE T hematocrit 36.3 % 34.0-4 6.6 normal Not Available [facility] ([facility]) [address] [place], [address], 06/21/2024 10:07:53 06/20/19 25 06/21/2024 CBC WITH DIFFE RENTI AL/PL ATELE T MCV 96 fL 79-97 normal Not Available [facility] ([facility]) [address] [place], [address], 06/21/2024 10:07:53 06/20/19 25 06/21/2024 CBC WITH DIFFE RENTI AL/PL ATELE T MCH 32.5 pg 26.6-3 3.0 normal Not Available [facility] ([facility]) [address] [place], [address], 06/21/2024 10:07:53 06/20/19 25 06/21/2024 CBC WITH DIFFE RENTI AL/PL ATELE T MCHC 33.9 g/dL 31.5-3 5.7 normal Not Available [facility] ([facility]) [address] [facility], [place], [address], 06/21/2024 10:07:53 06/20/19 25 06/21/2024 CBC WITH DIFFE RENTI AL/PL ATELE T RDW 13.7 % 11.7-1 5.4 Not Available [facility] ([facility]) [address] [facility], [place], [address], 06/21/2024 10:07:53 06/20/19 25 06/21/2024 CBC WITH DIFFE RENTI AL/PL ATELE T platelets 157 x10e3 /uL 150-45 0 normal Not Available [facility] ([facility]) [address] [place], [address], 06/21/2024 10:07:53 06/20/19 25 06/21/2024 CBC WITH DIFFE RENTI AL/PL ATELE T neutrophils 49 % not estab. normal Not Available [facility] ([facility]) [address] [place], [address], 06/21/2024 10:07:53 06/20/19 25 06/21/2024 CBC WITH DIFFE RENTI AL/PL ATELE T lymphs 35 % not estab. normal Not Available [facility] ([facility]) [address] [place], [address], 06/21/2024 10:07:53 06/20/19 25 06/21/2024 CBC WITH DIFFE RENTI AL/PL ATELE T monocytes 11 % not estab. normal Not Available [facility] ([facility]) [address] [facility], [place], [address], 06/21/2024 10:07:53 06/20/19 25 06/21/2024 CBC WITH DIFFE RENTI AL/PL ATELE T eos 4 % not estab. normal Not Available [facility] ([facility]) [address] [facility], [place], [address], 06/21/2024 10:07:53 06/20/19 25 06/21/2024 CBC WITH DIFFE RENTI AL/PL ATELE T basos 1 % not estab. normal Not Available [facility] ([facility]) [address] [facility], [place], [address], 06/21/2024 10:07:53 06/20/19 25 06/21/2024 CBC WITH DIFFE RENTI AL/PL ATELE T immature cells ENGINEERING MATHEMATICIAN Not Available [facility] ([facility]) [address] [place], [address], 06/21/2024 10:07:53 06/20/19 25 06/21/2024 CBC WITH DIFFE RENTI AL/PL ATELE T neutrophils (absolute) 2.6 x10e3 /uL 1.4-7. 0 normal Not Available [facility] ([facility]) [address] [place], [address], 06/21/2024 10:07:53 06/20/19 25 06/21/2024 CBC WITH DIFFE RENTI AL/PL ATELE T lymphs (absolute) 1.8 x10e3 /uL 0.7-3. 1 normal Not Available [facility] ([facility]) [address] [place], [address], 06/21/2024 10:07:53 06/20/19 25 06/21/2024 CBC WITH DIFFE RENTI AL/PL ATELE T monocytes(ab solute) 0.6 x10e3 /uL 0.1-0. 9 normal Not Available [facility] ([facility]) [address] [facility], [place], [address], 06/21/2024 10:07:53 06/20/19 25 06/21/2024 CBC WITH DIFFE RENTI AL/PL ATELE T eos (absolute) 0.2 x10e3 /uL 0.0-0. 4 normal Not Available [facility] ([facility]) [address] [facility], [place], [address], 06/21/2024 10:07:53 06/20/19 25 06/21/2024 CBC WITH DIFFE RENTI AL/PL ATELE T baso (absolute) 0.0 x10e3 /uL 0.0-0. 2 normal Not Available [facility] ([facility]) [address] [facility], [place], [address], 06/21/2024 10:07:53 06/20/19 25 06/21/2024 CBC WITH DIFFE RENTI AL/PL ATELE T immature granulocytes 0 % not estab. Not Available [facility] ([facility]) [address] [facility], [place], [address], 06/21/2024 10:07:53 06/20/19 25 06/21/2024 CBC WITH DIFFE RENTI AL/PL ATELE T immature grans (abs) 0.0 x10e3 /uL 0.0-0. 1 Not Available [facility] ([facility]) [address] [place], [address], 06/21/2024 10:07:53 06/20/19 25 06/21/2024 CBC WITH DIFFE RENTI AL/PL ATELE T NRBC ENGINEERING MATHEMATICIAN Not Available [facility] ([facility]) [address] [facility], [place], [address], 06/21/2024 10:07:53 06/20/19 25 06/21/2024 CBC WITH DIFFE RENTI AL/PL ATELE T hematology comments: ENGINEERING MATHEMATICIAN Not Available [facility] ([facility]) [address] [facility], [address], 06/21/2024 10:07:53 06/20/19 25 06/21/2024 COMP. METAB OLIC PANEL (14) glucose 82 mg/dL 70-99 normal Not Available [facility] ([facility]) [address] [facility], [address], 06/21/2024 10:07:53 06/20/19 25 06/21/2024 COMP. METAB OLIC PANEL (14) BUN 7 mg/dL 6-20 normal Not Available [facility] ([facility]) [address] [facility], [address], 06/21/2024 10:07:53 06/20/19 25 06/21/2024 COMP. METAB OLIC PANEL (14) creatinine 0.47 mg/dL 0.57-1 .00 below low normal Not Available [facility] ([facility]) [address] [facility], [address], 06/21/2024 10:07:53 06/20/19 25 06/21/2024 COMP. METAB OLIC PANEL (14) eGFR 126 mL/mi n/1.7 3 >59 normal Not Available [facility] ([facility]) [address] [place], [address], 06/21/2024 10:07:53 06/20/19 25 06/21/2024 COMP. METAB OLIC PANEL (14) BUN/creatini ne ratio 15 9-23 normal Not Available [facility] ([facility]) [address] [facility], [address], 06/21/2024 10:07:53 06/20/19 25 06/21/2024 COMP. METAB OLIC PANEL (14) sodium 138 mmol/ L 134-14 4 normal Not Available [facility] ([facility]) [address] [place], [address], 06/21/2024 10:07:53 06/20/19 25 06/21/2024 COMP. METAB OLIC PANEL (14) potassium 3.8 mmol/ L 3.5-5. 2 normal Not Available [facility] ([facility]) [address] [place], [address], 06/21/2024 10:07:53 06/20/19 25 06/21/2024 COMP. METAB OLIC PANEL (14) chloride 104 mmol/ L 96-106 normal Not Available [facility] ([facility]) [address] [place], [address], 06/21/2024 10:07:53 06/20/19 25 06/21/2024 COMP. METAB OLIC PANEL (14) carbon dioxide, total 21 mmol/ L 20-29 normal Not Available [facility] ([facility]) [address] [facility], [address], 06/21/2024 10:07:53 06/20/19 25 06/21/2024 COMP. METAB OLIC PANEL (14) calcium 9.4 mg/dL 8.7-10 .2 normal Not Available [facility] ([facility]) [address] [facility], [address], 06/21/2024 10:07:53 06/20/19 25 06/21/2024 COMP. METAB OLIC PANEL (14) protein, total 7.7 g/dL 6.0-8. 5 normal Not Available [facility] ([facility]) [address] [facility], [address], 06/21/2024 10:07:53 06/20/19 25 06/21/2024 COMP. METAB OLIC PANEL (14) albumin 4.1 g/dL 3.9-4. 9 normal Not Available [facility] ([facility]) [address] [facility], [address], 06/21/2024 10:07:53 06/20/19 25 06/21/2024 COMP. METAB OLIC PANEL (14) globulin, total 3.6 g/dL 1.5-4. 5 Not Available [facility] ([facility]) [address] [facility], [address], 06/21/2024 10:07:53 06/20/19 25 06/21/2024 COMP. METAB OLIC PANEL (14) bilirubin, total 1.2 mg/dL 0.0-1. 2 normal Not Available [facility] ([facility]) [address] [facility], [address], 06/21/2024 10:07:53 06/20/19 25 06/21/2024 COMP. METAB OLIC PANEL (14) alkaline phosphatase 102 IU/L 44-121 normal Not Available [facility]) [address] [place], [address], 06/21/2024 10:07:53 06/20/19 25 06/21/2024 COMP. METAB OLIC PANEL (14) AST (SGOT) 38 IU/L 0-40 normal Not Available [facility] ([facility]) [address] [place], [address], 06/21/2024 10:07:53 06/20/19 25 06/21/2024 COMP. METAB OLIC PANEL (14) ALT (SGPT) 19 IU/L 0-32 normal Not Available [facility] ([facility]) [address] [place], [address], 06/21/2024 10:07:53 06/20/19 25 06/21/2024 LIPID PANEL cholesterol, total 152 mg/dL 100-19 9 normal Not Available [facility] ([facility]) [address] [place], [address], 06/21/2024 10:07:54 06/20/19 25 06/21/2024 LIPID PANEL triglyceride s 65 mg/dL 0-149 normal Not Available [facility] ([facility]) [address] [place], [address], 06/21/2024 10:07:54 06/20/19 25 06/21/2024 LIPID PANEL HDL cholesterol 56 mg/dL >39 normal Not Available [facility]) [address] [place], [address], 06/21/2024 10:07:54 06/20/19 25 06/21/2024 LIPID PANEL VLDL cholesterol jennifer 13 mg/dL 5-40 Not Available [facility]) [address] [place], [address], 06/21/2024 10:07:54 06/20/19 25 06/21/2024 LIPID PANEL LDL chol calc ([facility]) 83 mg/dL 0-99 Not Available [facility]) [address] [place], [address], 06/21/2024 10:07:54 06/20/19 25 06/21/2024 LIPID PANEL LDL calc comment: ENGINEERING MATHEMATICIAN Not Available [facility] ([facility]) [address] [place], [address], 06/21/2024 10:07:54 06/20/19 25 06/21/2024 HEMOG LOBIN A1C hemoglobin A1C 5.7 % 4.8-5. 6 above high normal Predi abete s: 5.7 - 6.4 Diabe syl: >6.4 Glyce cornell contr ol for adult s with diabe syl: <7.0 Not Available [facility] ([facility]) [address] [place], [address], 06/21/2024 10:07:54 06/20/19 25 06/21/2024 D-DIM ER [...] old 0.80 mg/L FEU. Not Available [facility] ([facility]) [address] [facility], [place], [address], 06/21/2024 10:07:54 05/03/20 24 05/02/2024 liver elast ograp hy, mecha nical ly induc ed shear wave (PROC ) No observ ation record ed. [email or web address] [facility] [address], [place], [address], 05/03/2024 10:58:44 06/21/19 25 US, mihir x, main s, lower extre mity No observ ation record ed. [email or web address], [place], [address], 06/24/2024 10:02:08 06/24/19 XR, chest , 2 view No observ ation record ed. [address], [place], [address], 06/27/2024 14:15:07 02/25/2002/21/2025 US, echoc ardio gram, trans thora cic, compl ete No observ ation record ed. [email or web address] [address], [place], [address], 02/28/2025 08:55:15 02/27/2002/26/2025 stres s echoc ardio gram No observ ation record ed. [facility]28 [facility] [address], [place], [address], 03/03/2025 09:41:18 02/27/2002/26/2025 cardi ac stres s test No observ ation record ed. [facility]28 [facility] [address], [place], [place], [address], 03/03/2025 09:40:48 03/24/2003/19/2025 CT, angio gram, abdom en + pelvi s, w/ contr ast No observ ation record ed. [email or web address] [facility] [address], [place], [place], [address], 03/25/2025 08:40:00 03/31/2003/31/2025 imagi ng/di agnos tic resul t No observ ation record ed. [facility] [address], [place], [address], 03/31/2025 19:54:22 Result Notes None recorded. Problems Name Problem SNOMED Code Status Onset Date Resolution Date Notes Provider Name and Address Organization Details Recorded Time Precordi al pain 23738336 Completed 201601/23/2017 Problem Code: R07.2; Problem Code Type: ICD-10; Not Available [facility] 2 20:54:27 Restless legs syndrome 17298872 Completed 201601/21/2019 Problem Code: G25.81; Problem Code Type: ICD-10; Not Available [facility] 2 20:54:25 Constipa tion 21311423 Completed 201601/21/2019 Not Available [facility] 2 20:54:26 [place] lesion of lung 891580908 Completed 201601/21/2019 Problem Code: R91.1; Problem Code Type: ICD-10; Not Available [facility] 2 20:54:27 Generali zed anxiety disorder 63938736 Completed 201601/21/2019 Problem Code: F41.1; Problem Code Type: ICD-10; Not Available [facility] 2 20:54:25 Restless legs syndrome 94393263 Completed 201601/21/2019 Problem Code: G25.81; Problem Code Type: ICD-10; Not Available [facility] 2 20:54:25 Constipa tion 10402568 Active 2016 Not Available [facility] 2 20:54:26 Slow transit constipa tion 43935512 Active 2016 Problem Code: 564.01; Problem Code Type: ICD-9; Not Available [facility] 2 20:54:30 Candidal otitis externa 31102935 Completed 201708/12/2017 Problem Code: B37.84; Problem Code Type: ICD-10; Not Available [facility] 2 20:54:25 Acute suppurat esvin otitis media 972915762 Completed 201708/12/2017 Not Available [facility] 2 20:54:25 Acute suppurat esvin otitis media without spontane ous rupture of ear drum 83614013 Completed 201708/12/2017 Problem Code: 382.00; Problem Code Type: ICD-9; Not Available [facility] 2 20:54:30 Knee pain Completed 201709/28/2017 Not Available [facility] 2 20:54:26 Injury involvin g multiple body regions 238850793 Completed 201701/21/2019 Not Available [facility] 2 20:54:27 Nonvenom ous insect bite of multiple sites 692315195 Active 2017 Problem Code: 919.4; Problem Code Type: ICD-9; Not Available [facility] 2 20:54:31 Acute cystitis 56557089 Completed 201702/13/2018 Problem Code: N30.00; Problem Code Type: ICD-10; Not Available [facility] 2 20:54:26 Acquired hallux malleus 05256691 Active 2018 Problem Code: M20.40; Problem Code Type: ICD-10; Not Available [facility] 2 20:54:26 Hepatiti s C carrier 307388373 Active 2019 Problem Code: B18.2; Problem Code Type: ICD-10; Not Available [facility] 2 20:54:25 Abnormal weight gain 664161783 Completed 201904/24/2020 Problem Code: R63.5; Problem Code Type: ICD-10; Not Available [facility] 2 20:54:27 Finding of general energy 631277990 Completed 201909/15/2020 Problem Code: R53.83; Problem Code Type: ICD-10; Not Available [facility] 2 20:54:27 General examinat ion of patient Active 2019 Not Available [facility] 2 20:54:28 Viral screenin g Active 2019 Problem Code: Z11.59; Problem Code Type: ICD-10; Not Available [facility] 2 20:54:28 Influenz a vaccine needed 87273328028 06 Completed 201904/24/2020 Problem Code: Z23; Problem Code Type: ICD-10; Not Available [facility] 2 20:54:29 Body mass index 30+ - obesity 335107244 Completed 201904/24/2020 Problem Code: Z68.34; Problem Code Type: ICD-10; Not Available [facility] 2 20:54:29 Sampling of vagina for Papanico laou smear Completed 201904/24/2020 Problem Code: Z01.419; Problem Code Type: ICD-10; Not Available [facility] 2 20:54:28 Acute hepatiti s C 735218427 Active 2019 Problem Code: B17.10; Problem Code Type: ICD-10; Not Available [facility] 2 20:54:25 Neck pain 62644291 Completed 201909/15/2020 Not Available [facility] 2 20:54:26 Spasm 78820108 Completed 201909/15/2020 Problem Code: M62.838; Problem Code Type: ICD-10; Not Available [facility] 2 20:54:26 Acute suppurat esvin otitis media 358757409 Active 2020 Not Available [facility] 2 20:54:25 Obstruct ion of Eust[place] an tube 86190735 Active 2020 Not Available [facility] 2 20:54:25 Upper abdomina l pain 64148932 Active 2020 Not Available [facility] 2 20:54:27 Tobacco dependen ce caused by cigarett es 41624150170 627219 Active 2020 Problem Code: F17.210; Problem Code Type: ICD-10; Not Available [facility] 2 20:54:25 Body mass index 30+ - obesity 054123678 Active 2020 Problem Code: Z68.30; Problem Code Type: ICD-10; Not Available [facility] 2 20:54:29 Epigastr ic hernia 399754242 Active 2020 Problem Code: K43.9; Problem Code Type: ICD-10; Not Available [facility] 2 20:54:26 Acute otitis media 9133025 Active 2022 KASSANDRA GILMAN-BC [address] [place] [address], [address] , [place] [employer] 3 17:42:58 Dyspnea 856446266 Active 2024 Joanna hsu, [employer]. 5 09:45:38 Notes:*Problem Name: Left up per quadrant abdominal swelling, mass and lump *Problem Status: Chronic *Comments: *Problem Code: R19.02 *Problem Code Type: ICD-10 *Note Date: 01/26/2021 Problem Notes None recorded. Procedures Surgical History Date Name Laterality Status Provider Name and Address Organization Details Recorded Time 03/24/20 ligation of bilateral fallopian tubes completed Not Available [facility] 01/18/2022 22:56:17 section completed [employer] 09/01/2022 17:33:18 tonsilectomy/ad enoids completed [employer] 09/01/2022 17:33:32 Knee Replacement completed [employer] 09/01/2022 17:33:43 Imaging Results None recorded. Procedure Notes None recorded. Medical Equipment None Reported. Allergies Allergen ID Allergen Name Allergen Category Reaction Reaction Severity Criticality Documentation Date Start Date Code Code System Note Provider Name and Address Organization Details Recorded Time 36821 Product containin g penicilli n (product) medicatio n Not available Not available Not available 09/01/2022 26417 8001 SNOMED MAREK SABRINA hsu, [employer] 3 17:29:02 Medications Name Sig Start Date [...] Updated DateTime 5 167.64 cm 34.1 kg/m2 94982.9 9 g 85 /min 94 % 94 % 129/77 mm[Hg] Joanna [employer]. 5 15:52:50 Date Recorded Body weight Body mass index (BMI) Body height Heart rate Oxygen saturation Oxygen saturation in Arterial blood by Pulse oximetry Systolic And Diastolic Provider Name and Address Organization Details Last Updated DateTime 3 600879. 28 g 36.3 kg/m2 167.64 cm 77 /min 99 % 99 % 129/85 mm[Hg] MAREK BENNETT [employer] 3 17:34:58 Date Recorded Body height Body mass index (BMI) Body weight Heart rate Oxygen saturation Oxygen saturation in Arterial blood by Pulse oximetry Systolic And Diastolic Provider Name and Address Organization Details Last Updated DateTime 5 167.64 cm 33.6 kg/m2 94366.2 1 g 82 /min 97 % 97 % 127/83 mm[Hg] Joanna Ruddlly [employer] 5 13:18:57 Date Recorded Body height Body mass index (BMI) Body weight Heart rate Oxygen saturation Oxygen saturation in Arterial blood by Pulse oximetry Systolic And Diastolic Provider Name and Address Organization Details Last Updated DateTime 5 167.64 cm 33.4 kg/m2 80610.6 2 g 85 /min 94 % 94 % 129/75 mm[Hg] Joanna Abie [employer] 5 16:08:04 Social History Question Answer Notes LastModified by Organizat ion Details LastModified Time Tobacco Smoking Status Current Every Day Smoker [facility] 09/01/2022 17:31:16 Do You Have An Advance Directive? No [email or web address] Information not available 09/01/2022 Is Your Home Air Conditioned? Yes [email or web address] Information not available 09/01/2022 Are You A Caregiver? No [email or web address] Information not available 09/01/2022 Have You Been To An Area Known To Be High Risk For COVID-19? No [email or web address] Information not available 09/01/2022 Have There Been Any Changes To Your Family Or Social Situation? No [email or web address] Information no t available 09/01/2022 Do You Have A Medical Power Of College Or University Department Head? No [email or web address] Information not available 09/01/2022 What Was The Date Of Your Most Recent Tobacco Screening? 11/22/2024 [email or web address] Information not available 11/22/2024 What Is Your Current Pack Years? 10packyears [email or web address] Information not available 09/01/2022 What Is Your Relationship Status? Domestic Partner [email or web address] Information not available 09/01/2022 Do You Use Your Seat Belt Or Car Seat Routinely? Yes [email or web address] Information not available 09/01/2022 Do You Have Smoke And Carbon Monoxide Detectors In Your Home? Yes [email or web address] Information not available 09/01/2022 Are You Passively Exposed To Smoke? Yes Information no t available 09/01/2022 Are There Any Smokers In Your House? Yes [email or web address] Information not available 09/01/2022 How Much Tobacco Do You Smoke? 0.25 PPD [email or web address] Information not available 09/01/2022 How Many Years Have You Smoked Tobacco? 5 [email or web address] Information not available 09/01/2022 Have You Recently Traveled Abroad? No [email or web address] Information not available 09/01/2022 Are You Currently In School? No [email or web address] Information not available 09/01/2022 Sex: Female Functional Status Question Answer Note LastModified by Organizat ion Details LastModified Time Do you use any illicit or recreational drugs? No Prior use of opiates [email or web address] Information not available 09/01/2022 Do you or have you ever used any other forms of tobacco or nicotine? Yes [email or web address] Information not available 09/01/2022 What is your level of alcohol consumption? None [email or web address] Information not available 09/01/2022 Do you or have you ever used smokeless tobacco? Never used smokeless tobacco [email or web address] Information not available 09/01/2022 Are you currently employed? No [id number] Information not available 09/01/2022 Do you or have you ever used e-cigarettes or vape? Current user of electronic cigarettes [id number] Information not available 09/01/2022 Mental Status None recorded. Family History Relationship Description Onset Age of this Age Resolved Age Notes LastModified by Organization Details LastModified Time Mother Family history of Hypertension [id number] Not available 09/01/2022 17:30:23 Sister Family history of drug abuse [id number] Not available 17:30:38 Sister Family history of alcoholism [id number] Not available 17:30:47 Father Family history of diabetes mellitus type 2 [id number] Not available 17:31:00 Paternal Grandmother Family history of diabetes mellitus type 2 [id number] Not available 17:31:02 Paternal Grandfather Family history of diabetes mellitus type 2 [id number] Not available 17:31:05 Medical History Condition Response Hepatitis Y COPD Y Gynecological History Statement/Question Response Date of Last Pap Smear Most Recent Mammogram Obstetrics History GPAL:G 0 P 0 0 0 0 Immunizations Vaccine Type Date Status Note Provider Nam e and Address Organization Details Recorded Time Influenza, split virus, quadrivalent, preservative 8 completed Not Available [facility] 01/18/2022 23:36:48 Hep B, adult 5 completed Joanna hsu, [employer] 10/24/2024 14:21:42 Hep B, adult 5 completed Joanna hsu, [employer] 11/22/2024 16:45:18 Hep A, adult 5 completed Joanna hsu, [employer] 11/22/2024 16:45:18 MMR 0 completed Not Available [facility] 11/22/2024 15:37:04 Hep B, adolescent or pediatric 0 completed Not Available [facility] 11/22/2024 15:37:04 Td (adult), 2 Lf tetanus toxoid, preservative free, adsorbed 4 completed Not Available [facility] 11/22/2024 15:37:04 Hep B, adolescent or pediatric 4 completed Not Available [facility] 11/22/2024 15:37:04 Novel [id number] , all formulations 9 completed Not Available [facility] 11/22/2024 15:37:04 Influenza, split virus, trivalent, preservative 0 completed Not Available [facility] 11/22/2024 15:37:04 COVID-19, mRNA, LNP-S, PF, 100 mcg/0.5mL dose or 50 mcg/0.25mL dose 1 completed Not Available [facility] 11/22/2024 15:37:04 Past Encounters Encounter ID Performer Location Encounter Start Date Encounter Closed Date Diagnosis/Indication Diagnosis SNOMED-CT Code Diagnosis ICD10 Code Diagnosis IMO Codes Diagnosis Note [id number] KEKE NOBLES [place] [id number] 0 09/01/2022 17:25:10 09/01/2022 17:52:34 Acute otitis media 4311284 H66.91 [id number] [place] [id number] 0 06/20/2024 14:44:16 06/20/2024 15:47:46 Fatigue 17522685 R53.83 Hyperlipidemia 24459593 E78.5 Pain in ri ght lower limb 700269682 M79.604 Hyperglycemia 97196945 R 73.9 Body mass index 30+ - obesity 772482783 Z68.34 [id number] [place] [id number] 0 10/24/2024 12:59:13 10/24/2024 14:07:28 Active immunization 59738210 Z23 33716317 Body mass index 30+ - obesity 443159413 Z68.33 [id number] Jany [place] [id number] 0 11/22/2024 15:36:42 11/22/2024 16:35:34 Vaccination needed 6860221977 98091 Z23 664976 1st Hep B - 10/24/24; dose 2 today; f/u 6 months for final dose in the series.dos e 1 of Hep A today; follow up in 6 months for final dose in the series. Acute constipation 61499 9006 K59.00 078233 Body mass index 30+ - obesity 915397200 Z68.33 [id number] Health Concerns Section Related Observation LastModified by Organization Detai ls LastModified Time None Recorded Concern Status LastModified by Organization Details LastModified Time None Recorded Advance Directives Directive N: Payers Insurance Date Sequence Insurance Name Policy Number Policy Font[place]ot Covered Member ID Fontenot Member ID Guarantor Name 09/01/2022 1 *SELF PAY* Po Primo Victor 01/14/2025 1 [employer] [place] Aminata Victor [id number] Corey Victor 08/01/2024 1 UNSPECIFIED REMIT PAYOR Corey Victor Notes Date Note Type Note Provider Name and Address Organization Details Recorded Time 09/01/2022 text/html ROS as noted in the HPI Ear pain for three days. Right > Left. Mild sore throat. No cough. Patient has no history of seasonal allergies. KASSANDRA GILMAN-BC [address] [place], [address], [facility] [employer] 09/01/2022 17:56:12 06/20/2024 text/html 38 year old [...] agrees with plan Jany Wong APRN [address] [place], [address], [employer] 06/20/2024 16:03:47 10/24/2024 text/html pt here [...] back for boosters. Jany Wong APRN [address] [place], [address], [employer] 10/24/2024 15:49:43 11/22/2024 text/html pt here today for 2nd round of vaccines. pt states that she is doing well. states that her suboxone doc does not want her to have the adipex for wt loss. also states that her liver doc prescribed her linzess and it is working but she cannot go to [facility] the time. i will prescribe for pt. Jany Wong APRN [address] [facility], [place], [address], [employer] 11/22/2024 18:30:28 OBGyn Episode No OBEpisode recorded.
== END 2025-03-31 20:40 | disposition home or self-care (01) ==
PROVIDERS: Emergency Provider Student in an Organized Health Care Education/Training Program; PCP Nurse Practitioner Family
DX: S61.011A Laceration without foreign body of right thumb without damage to nail, initial encounter (principal)
CPT/HCPCS: 73130; 90471; 90715; 99283; J0169